=== PATIENT | female | born 1965 | race Two or more races ===

== ENCOUNTER 2017-08-28 12:46 | Inpatient (IN) | payer OTHER ==
[2017-08-28 16:20] VITALS: BMI 20.9
--- NOTE | 2017-08-28 17:45 | HP ---
CIWA Score - CIWA Score Nausea/Vomitin-Mild Nausea/No Vomiting Muscle Tremors: 4-Moderate,w/Arms Extend Anxiety: 4-Mod. Anxious/Guarded Agitation: 4-Moderately Restless Paroxysmal Sweats: 1-Minimal Palms Moist Orientation: 0-Oriented Tacttile Disturbances: 0-None Auditory Disturbances: 0-None Visual Disturbances: 0-None Headache: 0-None Present CIWA-Ar Total Score: 14 Admission ROS S - HPI Chief Complaint: withdrawal sx Allergies/Adverse Reactions: Allergies Allergy/AdvReac Type Severity Reaction Status Date / Time Fish Containing Products Allergy Severe Hives Verified 08/28/17 16:38 No Known Drug Allergies Allergy Verified 08/28/17 16:38 History of Present Illness: 52 years old female with long history of alcohol nicotine dependence has hiv suboxone 8/2 mg bid po since 11/2016 has depression is admitted to detox Exam Limitations: No Limitations - Ebola screening Have you traveled outside of the country in the last 21 days: No (N) Have you had contact with anyone from an Ebola affected area: No Have you been sick,other than usual withdrawal symptoms: No Do you have a fever: No - Review of Systems Constitutional: Loss of Appetite, Changes in sleep, Unintentional Wgt. Loss, Unexplained wgt Loss EENT: reports: No Symptoms Reported Respiratory: reports: No Symptoms reported Cardiac: reports: No Symptoms Reported GI: reports: Nausea, Poor Appetite, Poor Fluid Intake, Abdominal cramping : reports: No Symptoms Reported Musculoskeletal: reports: Back Pain (x "months"), Joint Pain, Muscle Pain Integumentary: reports: No Symptoms Reported Neuro: reports: Tremors Endocrine: reports: No Symptoms Reported Hematology: reports: No Symptoms Reported Psychiatric: reports: Judgement Intact, Orientated x3, Anxious, Depressed Other Systems: Reviewed and Negative Patient History - Patient Medical History Hx Anemia: No Hx Asthma: No Hx Chronic Obstructive Pulmonary Disease (COPD): No Hx Cancer: No Hx Cardiac Disorders: No Hx Congestive Heart Failure: No Hx Hypertension: No Hx Hypercholesterolemia: No Hx Pacemaker: No HX Cerebrovascular Accident: No Hx Seizures: No Hx Dementia: No Hx Diabetes: No Hx Gastrointestinal Disorders: No Hx Liver Disease: No Hx Genitourinary Disorders: No Hx Sexually Transmitted Disorders: No Hx Renal Disease (ESRD): No Hx Thyroid Disease: No Hx Human Immunodeficiency Virus (HIV): Yes (SINCE 2001--; HX OF PCP PNEUMONIA in 2011) Hx Hepatitis C: No Hx Depression: Yes Hx Suicide Attempt: No Hx Bipolar Disorder: No Hx Schizophrenia: No - Patient Surgical History Past Surgical History: Yes Hx Neurologic Surgery: No Hx Cataract Extraction: No Hx Cardiac Surgery: No Hx Lung Surgery: No Hx Breast Surgery: No Hx Breast Biopsy: No Hx Abdominal Surgery: No Hx Appendectomy: No Hx Cholecystectomy: No Hx Genitourinary Surgery: No Hx Orthopedic Surgery: No Other Surgical History: anus polys negative finding Anesthesia Reaction: No - PPD History Previous Implant?: Yes Documented Results: Negative w/proof Implanted On Prior R Admission?: Yes Date: 05/04/16 Results: 0 mm PPD to be Administered?: Yes - Reproductive History Patient is a Female of Child Bearing Age (11 -55 yrs old): Yes Last Menstrual Period: 06/27/17 Patient : No - Smoking Cessation Smoking history: Current every day smoker Have you smoked in the past 12 months: Yes Aproximately how many cigarettes per day: 6 Cigars Per Day: 0 Hx Chewing Tobacco Use: No Initiated information on smoking cessation: Yes 'Breaking Loose' booklet given: 08/28/17 - Substance & Tx. History Hx Alcohol Use: Yes Hx Substance Use: Yes Substance Use Type: Alcohol, Cocaine, Heroin Hx Substance Use Treatment: Yes (2015) - Substances Abused Alcohol Route: Oral Frequency: Daily Amount used: BEER- 1 SIX PACK12 oz Age of first use: 18 Date of Last Use: 08/28/17 Heroin Route: Inhalation Frequency: Daily Amount used: 2 BAGS Age of first use: 22 Date of Last Use: 08/28/17 Crack Route: Smoking Frequency: Daily Amount used: 4 BAGS Age of first use: 35 Date of Last Use: 08/28/17 Family Disease History - Family Disease History Family Disease History: Diabetes: Mother (HTN--ALIVE), Sister, Heart Disease: Father (ALCOHOLISM-- - hx cva), CA: Brother ( colon cancer), Respiratory: Mother, Other: Father, Mother Admission Physical Exam BHS - Vital Signs Vital Signs: Vital Signs - 24 hr 08/28/17 16:18 Temperature 96.9 F L Pulse Rate 85 Respiratory 20 Rate Blood Pressure 112/75 - Physical General Appearance: Yes: Appropriately Dressed, Mild Distress, Thin, Tremorous, Irritable, Sweating, Anxious HEENTM: Yes: Hearing grossly Normal, Normal ENT Inspection, Normocephalic, Normal Voice Respiratory: Yes: Chest Non-Tender, Normal Breath Sounds, No Respiratory Distress, No Accessory Muscle Use Neck: Yes: Supple, Trachea in good position Breast: Yes: Breasts Symetrical Cardiology: Yes: Regular Rhythm, Regular Rate, S1, S2 Abdominal: Yes: Normal Bowel Sounds, Non Tender, Soft Genitourinary: Yes: Within Normal Limits Back: Yes: Normal Inspection Musculoskeletal: Yes: full range of Motion, Gait Steady, Back pain, Muscle Pain Extremities: Yes: Normal Inspection, Normal Range of Motion, Non-Tender, Tremors Neurological: Yes: Alert, Motor Strength 5/5, Normal Response, Depressed Affect Integumentary: Yes: Warm Lymphatic: Yes: Within Normal Limits - Diagnostic (1) Weight loss Current Visit: Yes Status: Acute (2) Chronic back pain Current Visit: Yes Status: Chronic Qualifiers: Back pain location: low back pain Back pain laterality: bilateral Sciatica presence: without sciatica Qualified Code(s): M54.5 - Low back pain; G89.29 - Other chronic pain; G89.29 - Other chronic pain (3) Depression (emotion) Current Visit: Yes Status: Suspected Qualifiers: Depression Type: dysthymia Qualified Code(s): F34.1 - Dysthymic disorder (4) Encounter for monitoring Suboxone maintenance therapy Current Visit: Yes Status: Chronic Comment: since 11/2016 last dose 08/28/16 am x 1 dose (5) Alcohol dependence with uncomplicated withdrawal Current Visit: Yes Status: Acute (6) Nicotine dependence Current Visit: Yes Status: Acute Qualifiers: Nicotine product type: cigarettes Substance use status: in withdrawal Qualified Code(s): F17.213 - Nicotine dependence, cigarettes, with withdrawal (7) HIV (human immunodeficiency virus infection) Current Visit: Yes Status: Chronic Comment: no medication upon admission Cleared for Admission S - Detox or Rehab [facility] Level of Care: Medically Managed Detox Regimen/Protocol: Librium [facility] Breath Alcohol Content Breath Alcohol Content: 0 Urine Pregancy Test - Result Urine Test Results: Negative- NO Line Present Urine Drug Screen - Results Drug Screen Negative: No Urine Drug Screen Results: ALCON-Cocaine, OPI-Opiates
[2017-08-28] MEDS ORDERED: P-EPHED 60MG/TRIPROLIDI 2.5MG TABLET PO PRN (17:48)
[2017-08-28] MEDS ORDERED: ACETAMINOPHEN 325 MG TABLET (FP) PO PRN (17:48)
[2017-08-28] MEDS ORDERED: MENTHOL/PHENOL 1 EACH UD MM PRN (17:48)
[2017-08-28] MEDS ORDERED: NICOTINE POLACRILEX 2 MG GUM BC PRN (17:48)
[2017-08-28] MEDS ORDERED: guaiFENesin/D-METHORPHAN HB 10 ML UNIT-DOSE CUPS PO PRN (17:48)
[2017-08-28] MEDS ORDERED: MAGNESIUM HYDROX 2400MG/30ML ORAL SUSPENSION 30 ML CUP PO PRN (17:48)
[2017-08-28] MEDS ORDERED: chlordiazePOXIDE HCL 25 MG CAPSULE PO PRN (17:48)
[2017-08-28] MEDS ORDERED: MAG HYDROX/AL HYDROX/SIMETH 30 ML UNIT-DOSE CUP PO PRN (17:48)
[2017-08-28] MEDS ORDERED: MAGNESIUM CITRATE 300 ML BOTTLE PO PRN (17:48)
[2017-08-28] MEDS ORDERED: IBUPROFEN 400 MG TABLET (FP) PO PRN (17:48)
[2017-08-28] MEDS ORDERED: LOPERAMIDE HCL 2 MG CAPSULE PO PRN (17:48)
[2017-08-28] MEDS ORDERED: METHADONE HCL 10 MG TABLET (FOR DETOX USE ONLY) ONE (19:13)
[2017-08-28] MEDS: THIAMINE HCL 100 MG TABLET (FP) PO SCH (22:17)
[2017-08-28] MEDS: BUPRENORPHINE/NALOXONE 8 MG/2 MG FILM PACKET SL SCH (22:17)
[2017-08-28] MEDS: chlordiazePOXIDE HCL 25 MG CAPSULE PO SCH (22:18)
[2017-08-28] MEDS: LIDOCAINE PATCH REMOVAL MC SCH (22:53)
[2017-08-28 23:19] LABS: URINE APPEARANCE TURBID; URINE BILIRUBIN NEGATIVE (NEGATIVE); URINE BLOOD NEGATIVE (NEGATIVE); URINE GLUCOSE (UA) NEGATIVE (NEGATIVE); URINE KETONE NEGATIVE (NEGATIVE); URINE LEUK ESTERASE NEGATIVE (NEGATIVE); URINE NITRITE NEGATIVE (NEGATIVE); URINE PROTEIN NEGATIVE (NEGATIVE)
[2017-08-28 23:36] LABS: URINE COLOR YELLOW
[2017-08-29] MEDS: chlordiazePOXIDE HCL 25 MG CAPSULE PO SCH ×4 (05:36→22:30)
[2017-08-29] MEDS: METHOCARBAMOL 500 MG TABLET PO PRN (10:25)
[2017-08-29] MEDS: PRENATAL VITAMINS W/ FOLIC ACID TABLET (FP) PO SCH (10:25)
[2017-08-29] MEDS: NICOTINE 14 MG/24 HOURS TOPICAL PATCH TD SCH (10:25)
[2017-08-29 10:26] LABS: HEMATOCRIT 40.3 % (32.4-45.2); HEMOGLOBIN 13.2 GM/dL (10.7-15.3); MCH 33.2 pg (25.7-33.7); MCHC 32.8 g/dl (32.0-36.0); MEAN CELL VOLUME 101.1 fl (80-96); MEAN PLT VOLUME 8.7 fl (7.5-11.1); PLATELET COUNT 283 K/MM3 (134-434); RBC 3.99 M/mm3 (3.60-5.2); RDW 13.1 % (11.6-15.6); WHITE BLOOD COUNT 6.1 K/mm3 (4.0-10.0)
[2017-08-29] MEDS: ABACAVIR/DOLUTEGRAVIR/LAMIVUDI (TRIUMEQ) TABLET -NF PO SCH (10:26)
[2017-08-29] MEDS: BUPRENORPHINE/NALOXONE 8 MG/2 MG FILM PACKET SL SCH ×2 (10:29→22:29)
[2017-08-29 10:35] LABS: ALBUMIN 3.2 g/dl (3.4-5.0); BLOOD UREA NITROGEN 15 mg/dL (7-18); CHLORIDE 106 mmol/L (98-107); GLUCOSE,RANDOM 90 mg/dL (74-106); POTASSIUM 4.6 mmol/L (3.5-5.1); SGPT/ALT 17 U/L (12-78); SODIUM 142 mmol/L (136-145)
--- NOTE | 2017-08-29 10:41 | EKG ---
Test Reason : Blood Pressure : / mmHG Vent. Rate : 083 BPM Atrial Rate : 083 BPM P-R Int : 138 ms QRS Dur : 084 ms QT Int : 398 ms P-R-T Axes : 058 038 030 degrees QTc Int : 467 ms NORMAL SINUS RHYTHM POSSIBLE LEFT ATRIAL ENLARGEMENT BORDERLINE ECG NO PREVIOUS ECGS AVAILABLE Confirmed by ROSY HARRIS, JUAN MIGUEL ([id number]) on 08/29/2017 10:40:48 AM Referred By: Confirmed By:JUAN MIGUEL GALLEGOS MD
[2017-08-29 10:42] LABS: ALK PHOS 113 U/L (45-117); ANION GAP 5 (8-16); BILIRUBIN,TOTAL 0.2 mg/dL (0.2-1.0); CALCIUM 8.8 mg/dL (8.5-10.1); CO2 31 mmol/L (21-32); CREATININE 0.6 mg/dL (0.55-1.02); SGOT/AST 12 U/L (15-37); TOT PROT 6.5 g/dl (6.4-8.2)
--- NOTE | 2017-08-29 11:20 | PN ---
S CIWA - CIWA Score Nausea/Vomitin Muscle Tremors: 2 Anxiety: 2 Agitation: 2 Paroxysmal Sweats: 3 Orientation: 0-Oriented Tacttile Disturbances: 1-Very Mild Itch/Numbness Auditory Disturbances: 0-None Visual Disturbances: 0-None Headache: 0-None Present CIWA-Ar Total Score: 13 BHS Progress Note (SOAP) Subjective: interrupted sleep, sweats, decreased appetite Objective: 08/29/17 11:17 Vital Signs Temperature 98.1 F 08/29/17 07:15 Pulse Rate 77 08/29/17 07:15 Respiratory Rate 17 08/29/17 07:15 Blood Pressure 105/44 08/29/17 07:15 O2 Sat by Pulse Oximetry (%) 08/29/17 08/29/17 07:00 07:00 WBC 6.1 RBC 3.99 Hgb 13.2 Hct 40.3 MCV 101.1 H MCHC 32.8 RDW 13.1 Plt Count 283 D Sodium 142 Potassium 4.6 Chloride 106 Carbon Dioxide 31 D Anion Gap 5 L BUN 15 Creatinine 0.6 pt aox3 in nad ambulating Assessment: 08/29/17 11:17 withdrawal sx;s Plan: cont. detox increase fluids
[2017-08-29] MEDS: LIDOCAINE 5% TOPICAL PATCH TP SCH (11:26)
--- NOTE | 2017-08-29 13:44 | CONSULT ---
[facility] Psychiatric Consult - Data Date of interview: 08/29/17 Admission source: [facility] Identifying data: Pt. is a 52 year old female, single, mother of two, and currently unemployed. Substance Abuse History: Following information confirmed with Ms. Castaneda: Smoking Cessation. Smoking history: Current every day smoker. Have you smoked in the past 12 months: Yes. Aproximately how many cigarettes per day: 6. Cigars Per Day: 0. Hx Chewing Tobacco Use: No. Initiated information on smoking cessation: Yes. 'Breaking Loose' booklet given: 08/28/17. - Substance & Tx. History. Hx Alcohol Use: Yes. Hx Substance Use: Yes. Substance Use Type : Alcohol, Cocaine, Heroin. Hx Substance Use Treatment: Yes (2015). - Substances Abused. Alcohol. Route: Oral. Frequency: Daily. Amount used: BEER- 1 SIX PACK12 oz. Age of first use: 18. Date of Last Use: 08/28/17. Heroin. Route: Inhalation. Frequency: Daily. Amount used: 2 BAGS. Age of first use: 22. Date of Last Use: 08/28/17. Crack. Route: Smoking. Frequency: Daily. Amount used: 4 BAGS. Age of first use: 35. Date of Last Use : 08/28/17 Medical History: HIV Psychiatric History: Pt. denies h/o psychiatric hospitalization and suicide attempts. Reports last OPC appointment was in June 2017 and was given a prescription of trazodone which patient stated was ineffective. Pt. requesting seroquel for insomnia. Physical/Sexual Abuse/Trauma History: Denies. Mental Status Exam - Mental Status Exam Alert and Oriented to: Time, Place, Person Cognitive Function: Good Patient Appearance: Unkempt Mood: Withdrawn Affect: Normal Range Patient Behavior: Fatigued, Cooperative Speech Pattern: Delayed Voice Loudness: Moderately Soft/Quiet Thought Process: Goal Oriented Thought Disorder: Not Present Hallucinations: Denies Suicidal Ideation: Denies Homicidal Ideation: Denies Insight/Judgement: Poor Sleep: Poorly Appetite: Fair Muscle strength/Tone: Normal Gait/Station: Normal Psychiatric Findings - Problem List ([place] 1, 2,3) (1) Nicotine dependence Current Visit: Yes Status: Acute Qualifiers: Nicotine product type: cigarettes Substance use status: in withdrawal Qualified Code(s): F17.213 - Nicotine dependence, cigarettes, with withdrawal (2) Alcohol dependence with uncomplicated withdrawal Current Visit: Yes Status: Chronic (3) Alcohol dependence Current Visit: Yes Status: Active (4) Opioid dependence Current Visit: Yes Status: Active (5) Cocaine dependence Current Visit: Yes Status: Acute (6) Insomnia Current Visit: Yes Status: Acute - Initial Treatment Plan Initial Treatment Plan: Psychoeducation provided. Detoxification in progress. Seroquel 25mg qhs ordered for insomnia. Benefits and side effects discussed. Verbal consent given. Will continue to monitor.
[2017-08-29] MEDS: QUEtiapine FUMARATE 25 MG TABLET (FP) PO SCH (22:29)
[2017-08-29] MEDS: THIAMINE HCL 100 MG TABLET (FP) PO SCH (22:29)
[2017-08-29] MEDS: LIDOCAINE PATCH REMOVAL MC SCH ×2 (22:46→22:47)
[2017-08-30] MEDS: chlordiazePOXIDE HCL 25 MG CAPSULE PO SCH ×3 (05:37→17:55)
[2017-08-30] MEDS: LIDOCAINE 5% TOPICAL PATCH TP SCH (10:00)
[2017-08-30] MEDS: PRENATAL VITAMINS W/ FOLIC ACID TABLET (FP) PO SCH (10:31)
[2017-08-30] MEDS: NICOTINE 14 MG/24 HOURS TOPICAL PATCH TD SCH (10:31)
[2017-08-30] MEDS: METHOCARBAMOL 500 MG TABLET PO PRN (10:31)
[2017-08-30] MEDS: ABACAVIR/DOLUTEGRAVIR/LAMIVUDI (TRIUMEQ) TABLET -NF PO SCH (10:32)
[2017-08-30] MEDS: BUPRENORPHINE/NALOXONE 8 MG/2 MG FILM PACKET SL SCH ×2 (10:34→22:24)
--- NOTE | 2017-08-30 11:03 | PN ---
S CIWA - CIWA Score Nausea/Vomitin-No Nausea/No Vomiting Muscle Tremors: 4-Moderate,w/Arms Extend Anxiety: 3 Agitation: 3 Paroxysmal Sweats: 3 Orientation: 0-Oriented Tacttile Disturbances: 0-None Auditory Disturbances: 0-None Visual Disturbances: 0-None Headache: 0-None Present CIWA-Ar Total Score: 13 BHS Progress Note (SOAP) Subjective: agitation sweats interrupted sleep body aches shakes Objective: 08/30/17 11:02 Vital Signs Temperature 98.2 F 08/30/17 09:18 Pulse Rate 109 H 08/30/17 09:18 Respiratory Rate 20 08/30/17 09:18 Blood Pressure 117/70 08/30/17 09:18 O2 Sat by Pulse Oximetry (%) Laboratory Tests 08/28/17 08/29/17 08/29/17 19:41 07:00 07:00 WBC 6.1 RBC 3.99 Hgb 13.2 Hct 40.3 MCV 101.1 H MCH 33.2 MCHC 32.8 RDW 13.1 Plt Count 283 D MPV 8.7 Sodium 142 Potassium 4.6 Chloride 106 Carbon Dioxide 31 D Anion Gap 5 L BUN 15 Creatinine 0.6 Creat Clearance w eGFR > 60 Random Glucose 90 Calcium 8.8 Total Bilirubin 0.2 D AST 12 L D ALT 17 D Alkaline Phosphatase 113 Total Protein 6.5 Albumin 3.2 L Urine Color Yellow Urine Appearance Turbid Urine pH 5.0 Ur Specific [place] 1.030 Urine Protein Negative Urine Glucose (UA) Negative Urine Ketones Negative Urine Blood Negative Urine Nitrite Negative Urine Bilirubin Negative Urine Urobilinogen 2.0 H Ur Leukocyte Esterase Negative RPR Titer 08/29/17 07:00 WBC RBC Hgb Hct MCV MCH MCHC RDW Plt Count MPV Sodium Potassium Chloride Carbon Dioxide Anion Gap BUN Creatinine Creat Clearance w eGFR Random Glucose Calcium Total Bilirubin AST ALT Alkaline Phosphatase Total Protein Albumin Urine Color Urine Appearance Urine pH Ur Specific [place] Urine Protein Urine Glucose (UA) Urine Ketones Urine Blood Urine Nitrite Urine Bilirubin Urine Urobilinogen Ur Leukocyte Esterase RPR Titer Nonreactive aaox3 ambulating no acute distress Assessment: 08/30/17 11:03 withdrawal sx Plan: continue detox increase fluids
[2017-08-30] MEDS: THIAMINE HCL 100 MG TABLET (FP) PO SCH (22:24)
[2017-08-30] MEDS: QUEtiapine FUMARATE 25 MG TABLET (FP) PO SCH (22:24)
[2017-08-30] MEDS: chlordiazePOXIDE 5 MG CAPSULE PO SCH (22:26)
[2017-08-30] MEDS: LIDOCAINE PATCH REMOVAL MC SCH (22:26)
[2017-08-31] MEDS: chlordiazePOXIDE 5 MG CAPSULE PO SCH ×3 (05:23→17:24)
[2017-08-31] MEDS: BUPRENORPHINE/NALOXONE 8 MG/2 MG FILM PACKET SL SCH ×2 (10:21→22:37)
[2017-08-31] MEDS: PRENATAL VITAMINS W/ FOLIC ACID TABLET (FP) PO SCH (10:21)
[2017-08-31] MEDS: ABACAVIR/DOLUTEGRAVIR/LAMIVUDI (TRIUMEQ) TABLET -NF PO SCH (10:21)
[2017-08-31] MEDS: LIDOCAINE 5% TOPICAL PATCH TP SCH (10:22)
[2017-08-31] MEDS: NICOTINE 14 MG/24 HOURS TOPICAL PATCH TD SCH (10:22)
--- NOTE | 2017-08-31 10:49 | PN ---
BHS Progress Note (SOAP) Subjective: sweats Objective: 08/31/17 10:48 Vital Signs Temperature 98.2 F 08/31/17 10:46 Pulse Rate 105 H 08/31/17 10:46 Respiratory Rate 18 08/31/17 10:46 Blood Pressure 119/79 08/31/17 10:46 O2 Sat by Pulse Oximetry (%) Laboratory Tests 08/28/17 08/29/17 08/29/17 19:41 07:00 07:00 WBC 6.1 RBC 3.99 Hgb 13.2 Hct 40.3 MCV 101.1 H MCH 33.2 MCHC 32.8 RDW 13.1 Plt Count 283 D MPV 8.7 Sodium 142 Potassium 4.6 Chloride 106 Carbon Dioxide 31 D Anion Gap 5 L BUN 15 Creatinine 0.6 Creat Clearance w eGFR > 60 Random Glucose 90 Calcium 8.8 Total Bilirubin 0.2 D AST 12 L D ALT 17 D Alkaline Phosphatase 113 Total Protein 6.5 Albumin 3.2 L Urine Color Yellow Urine Appearance Turbid Urine pH 5.0 Ur Specific [place] 1.030 Urine Protein Negative Urine Glucose (UA) Negative Urine Ketones Negative Urine Blood Negative Urine Nitrite Negative Urine Bilirubin Negative Urine Urobilinogen 2.0 H Ur Leukocyte Esterase Negative RPR Titer 08/29/17 07:00 WBC RBC Hgb Hct MCV MCH MCHC RDW Plt Count MPV Sodium Potassium Chloride Carbon Dioxide Anion Gap BUN Creatinine Creat Clearance w eGFR Random Glucose Calcium Total Bilirubin AST ALT Alkaline Phosphatase Total Protein Albumin Urine Color Urine Appearance Urine pH Ur Specific [place] Urine Protein Urine Glucose (UA) Urine Ketones Urine Blood Urine Nitrite Urine Bilirubin Urine Urobilinogen Ur Leukocyte Esterase RPR Titer Nonreactive pt aox3 in nad ambulating Assessment: 08/31/17 10:48 withdrawal sx;s Plan: cont. detox increase fluids d/c in am
[2017-08-31] MEDS: THIAMINE HCL 100 MG TABLET (FP) PO SCH (22:37)
[2017-08-31] MEDS: QUEtiapine FUMARATE 25 MG TABLET (FP) PO SCH (22:37)
[2017-08-31] MEDS: chlordiazePOXIDE HCL 10 MG CAPSULE PO SCH (22:37)
[2017-08-31] MEDS: LIDOCAINE PATCH REMOVAL MC SCH (22:39)
[2017-09-01] MEDS: chlordiazePOXIDE HCL 10 MG CAPSULE PO SCH ×2 (05:35→11:34)
[2017-09-01] MEDS: BUPRENORPHINE/NALOXONE 8 MG/2 MG FILM PACKET SL SCH (09:12)
[2017-09-01] MEDS: PRENATAL VITAMINS W/ FOLIC ACID TABLET (FP) PO SCH (09:12)
[2017-09-01 10:18] VITALS: BP 140/89; PULSE 110; TEMP 97.1
--- NOTE | 2017-09-01 10:53 | DS ---
[facility] Detox Discharge Summary Admission Date: 08/28/17 Discharge Date: 09/01/17 - History Present History: Alcohol Dependence, Opioid Dependence Pertinent Past History: Chronic pain Insomnia - Physical Exam Results Vital Signs: Vital Signs Temperature 97.1 F L 09/01/17 10:18 Pulse Rate 110 H 09/01/17 10:18 Respiratory Rate 18 09/01/17 10:18 Blood Pressure 140/89 09/01/17 10:18 O2 Sat by Pulse Oximetry (%) Pertinent Admission Physical Exam Findings: withdrawal symptoms - Treatment Hospital Course: Detox Protocol Followed, Detoxed Safely, Responded well, Discharged Condition Good, Rehab Referral Accepted Patient has Accepted a Rehab Referral to: Patient to continue with self help groups - Medication Discharge Medications: Ambulatory Orders Abacavir/Dolutegravir/Lamivudi [Triumeq Tablet] 1 each PO DAILY 05/02/16 Mirtazapine [Remeron -] 15 mg PO HS 05/02/16 Buprenorphine/Naloxone [Suboxone 8Mg/2Mg Sl Film -] 1 each SL BID 08/28/17 - Diagnosis (1) Opioid dependence on agonist therapy Current Visit: Yes Status: Acute (2) Insomnia Current Visit: Yes Status: Acute (3) Weight loss Current Visit: Yes Status: Acute (4) Alcohol dependence with uncomplicated withdrawal Current Visit: Yes Status: Chronic (5) Chronic back pain Current Visit: Yes Status: Chronic Qualifiers: Back pain location: low back pain Back pain laterality: bilateral Sciatica presence: without sciatica Qualified Code(s): M54.5 - Low back pain; G89.29 - Other chronic pain; G89.29 - Other chronic pain (6) Cocaine dependence Current Visit: Yes Status: Chronic (7) HIV (human immunodeficiency virus infection) Current Visit: Yes Status: Chronic (8) Nicotine dependence Current Visit: Yes Status: Chronic Qualifiers: Nicotine product type: cigarettes Substance use status: uncomplicated Qualified Code(s): F17.210 - Nicotine dependence, cigarettes, uncomplicated - AMA Did Patient Leave Against Medical Advice: No
[2017-09-01] MEDS: ABACAVIR/DOLUTEGRAVIR/LAMIVUDI (TRIUMEQ) TABLET -NF PO SCH (11:33)
[2017-09-01] MEDS: LIDOCAINE 5% TOPICAL PATCH TP SCH (11:33)
[2017-09-01] MEDS: NICOTINE 14 MG/24 HOURS TOPICAL PATCH TD SCH (11:33)
== END 2017-09-01 09:32 | disposition home or self-care (01) | DRG 773 ==
LOC: YASAS 12:46 → Y6N 16:57
PROVIDERS: ADMIT Internal Medicine; ATTEND Internal Medicine
PROC: HZ2ZZZZ Detoxification Services for Substance Abuse Treatment (ICD-10-PCS; principal; 2017-08-28)
DX: F10.230 Alcohol dependence with withdrawal, uncomplicated (principal); F11.20 Opioid dependence, uncomplicated; F14.20 Cocaine dependence, uncomplicated; F17.210 Nicotine dependence, cigarettes, uncomplicated; F34.1 Dysthymic disorder; F19.24 Other psychoactive substance dependence with psychoactive substance-induced mood disorder; F19.282 Other psychoactive substance dependence with psychoactive substance-induced sleep disorder; B20 Human immunodeficiency virus [HIV] disease; G47.00 Insomnia, unspecified; M54.5 Low back pain; G89.29 Other chronic pain; Z91.013 Allergy to seafood; Z87.898 Personal history of other specified conditions
CPT/HCPCS: 36415; 80053; 81003; 85027; 86593; 93005; 93010

== ENCOUNTER 2018-10-28 12:30 | Inpatient (IN) | payer OTHER ==
[2018-10-28 13:55] VITALS: BMI 19.8
--- NOTE | 2018-10-28 15:26 | HP ---
CIWA Score Nausea/Vomitin-No Nausea/No Vomiting Muscle Tremors: 1-None Visible, but [place] Anxiety: 3 Agitation: 2 Paroxysmal Sweats: 2 Orientation: 0-Oriented Tacttile Disturbances: 0-None Auditory Disturbances: 0-None Visual Disturbances: 0-None Headache: 0-None Present CIWA-Ar Total Score: 8 - Admission Criteria OASAS Guidelines: Admission for Medically Managed Detox: Requires at least one of the followin. CIWA greater than 12 2. Seizures within the past 24 hours 3. Delirium tremens within the past 24 hours 4. Hallucinations within the past 24 hours 5. Acute intervention needed for co occurring medical disorder 6. Acute intervention needed for co occurring psychiatric disorder 7. Severe withdrawal that cannot be handled at a lower level of care (continued vomiting, continued diarrhea, abnormal vital signs) requiring intravenous medication and/or fluids 8. Patient presents the following: Acute intervention needed for co-occurring med or psych disorder Admission Criteria Met: Admission criteria met Admission ROS S - [facility] Chief Complaint: " I want to get off everything" Allergies/Adverse Reactions: Allergies Allergy/AdvReac Type Severity Reaction Status Date / Time Fish Containing Products Allergy Severe Hives Verified 10/28/18 14:50 No Known Drug Allergies Allergy Verified 10/28/18 14:50 Seafood Allergy Uncoded 10/28/18 14:50 History of Present Illness: 53 yo female with hx of nicotine, tess, heroin (nasal) and alcohol dependence is here seeking alcohol detox. Last detox [facility] August 2017 reports relapse soon after. Longest period of sobriety six years. Currently on suboxone maintenance for opioid use disorder on 8 mg BID. PMHX: HIV+ reports recently stopped taking her medications. Denies suicidal / homicidal ideation or hx of suicide attempt. Others' Prescriptions Patient Name: Lazara Castaneda Date: 1965 Address: [address] [place] [address] Sex: Female Rx Written Rx Dispensed Drug Quantity Days Supply Prescriber Name 10/21/2018 10/21/2018 buprenorphine-naloxone 8-2 mg sl film 60 30 Jef Galeano 10/07/2018 10/07/2018 buprenorphine-naloxone 8-2 mg sl film 30 15 Jef Galeano 09/23/2018 09/23/2018 suboxone 8 mg-2 mg sl film 28 14 Jef Galeano 09/16/2018 09/16/2018 suboxone 8 mg-2 mg sl film 14 7 GaleanoJef gary 07/15/2018 07/15/2018 suboxone 8 mg-2 mg sl film 60 30 GaleanoJef gary 06/14/2018 06/14/2018 suboxone 8 mg-2 mg sl film 60 30 GaleanoJef gary 05/16/2018 05/16/2018 suboxone 8 mg-2 mg sl film 60 30 GaleanoJef gary 04/17/2018 04/18/2018 suboxone 8 mg-2 mg sl film 60 30 Aroldo Hull MD 03/29/2018 03/29/2018 suboxone 8 mg-2 mg sl film 30 15 Aroldo Hull MD 03/01/2018 03/01/2018 suboxone 8 mg-2 mg sl film 60 30 Aroldo Hull MD 02/01/2018 02/01/2018 suboxone 8 mg-2 mg sl film 60 30 Aroldo Hull MD Exam Limitations: No Limitations - Ebola screening Have you traveled outside of the country in the last 21 days: No Have you had contact with anyone from an Ebola affected area: No Have you been sick,other than usual withdrawal symptoms: No Do you have a fever: No - Review of Systems Constitutional: Chills, Loss of Appetite, Unintentional Wgt. Loss (20 lbs in past three months) EENT: reports: No Symptoms Reported Respiratory: reports: No Symptoms reported Cardiac: reports: No Symptoms Reported GI: reports: Poor Appetite, Poor Fluid Intake : reports: No Symptoms Reported Musculoskeletal: reports: No Symptoms Reported Integumentary: reports: No Symptoms Reported Neuro: reports: No Symptoms reported Endocrine: reports: No Symptoms Reported Hematology: reports: See HPI Psychiatric: reports: Anxious Other Systems: Reviewed and Negative Patient History - Patient Medical History Hx Anemia: No Hx Asthma: No Hx Chronic Obstructive Pulmonary Disease (COPD): No Hx Cancer: No Hx Cardiac Disorders: No Hx Congestive Heart Failure: No Hx Hypertension: No Hx Hypercholesterolemia: No Hx Pacemaker: No HX Cerebrovascular Accident: No Hx Seizures: No Hx Dementia: No Hx Diabetes: No Hx Gastrointestinal Disorders: No Hx Liver Disease: No Hx Genitourinary Disorders: No Hx Sexually Transmitted Disorders: No Hx Renal Disease (ESRD): No Hx Thyroid Disease: No Hx Human Immunodeficiency Virus (HIV): Yes (SINCE 2001--; HX OF PCP PNEUMONIA in 2011) Hx Hepatitis C: No Hx Depression: Yes Hx Suicide Attempt: No Hx Bipolar Disorder: No Hx Schizophrenia: No - Patient Surgical History Past Surgical History: Yes Hx Neurologic Surgery: No Hx Cataract Extraction: No Hx Cardiac Surgery: No Hx Lung Surgery: No Hx Breast Surgery: No Hx Breast Biopsy: No Hx Abdominal Surgery: No Hx Appendectomy: No Hx Cholecystectomy: No Hx Genitourinary Surgery: No Hx Section: No Hx Orthopedic Surgery: No Other Surgical History: anus polys negative finding Anesthesia Reaction: No - PPD History Previous Implant?: Yes Documented Results: Negative w/proof Implanted On Prior [facility] Admission?: No Date: 08/30/17 Results: 0 mm PPD to be Administered?: Yes - Reproductive History Last Menstrual Period: 06/27/17 Patient : No - Smoking Cessation Smoking history: Current every day smoker Have you smoked in the past 12 months: Yes Aproximately how many cigarettes per day: 12 Cigars Per Day: 0 Hx Chewing Tobacco Use: No Initiated information on smoking cessation: Yes 'Breaking Loose' booklet given: 10/28/18 - Substance & Tx. History Hx Alcohol Use: Yes Hx Substance Use: Yes Substance Use Type: Alcohol, Cocaine, Heroin, Marijuana Hx Substance Use Treatment: Yes (Detox [facility] August 2017) - Substances Abused Heroin Route: Inhalation Frequency: Daily Amount used: 1 bundle Age of first use: 20 Date of Last Use: 10/27/18 Alcohol Route: Oral Frequency: Daily Amount used: 1 pint liquor, 3 cans beers ( 12 oz). Age of first use: 30 Date of Last Use: 10/28/18 crack cocaine Route: Smoking Frequency: Daily Amount used: $100 per day Age of first use: 30 Date of Last Use: 10/27/18 Family Disease History - Family Disease History Family Disease History: Diabetes: Mother (HTN--ALIVE), Sister, Heart Disease: Father (ALCOHOLISM-- - hx cva), CA: Brother ( colon cancer), Respiratory: Mother, Other: Father, Mother Admission Physical Exam [facility] - Vital Signs Vital Signs: Vital Signs - 24 hr 10/28/18 13:53 Temperature 97.8 F Pulse Rate 80 Respiratory 20 Rate Blood Pressure 149/77 - Physical General Appearance: Yes: Appropriately Dressed, Thin HEENTM: Yes: EOMI, Hearing grossly Normal, Normal ENT Inspection, Normocephalic , Normal Voice, SUMANTH, Pharynx Normal, Tm's normal Respiratory: Yes: Within Normal Limits Neck: Yes: Within Normal Limits Breast: Yes: Breast Exam Deferred Cardiology: Yes: Regular Rhythm, Regular Rate Abdominal: Yes: Normal Bowel Sounds, Non Tender, Flat, Soft Genitourinary: Yes: Within Normal Limits Back: Yes: Within Normal Limits Musculoskeletal: Yes: full range of Motion, Gait Steady, Pelvis Stable Extremities: Yes: Normal Capillary Refill, Normal Inspection, Normal Range of Motion, Non-Tender Neurological: Yes: spoon maker II-XII NML intact, Fully Oriented, Motor Strength 5/5, Normal Mood/Affect (anxious), Depressed Affect Integumentary: Yes: Normal Color, Warm, Diaphoresis Lymphatic: Yes: Within Normal Limits - Diagnostic (1) Weight loss Current Visit: Yes Status: Acute (2) Alcohol dependence with uncomplicated withdrawal Current Visit: Yes Status: Chronic (3) Cocaine dependence Current Visit: Yes Status: Chronic (4) HIV (human immunodeficiency virus infection) Current Visit: Yes Status: Chronic Comment: no medication upon admission (5) Nicotine dependence Current Visit: Yes Status: Chronic Qualifiers: Nicotine product type: cigarettes Substance use status: uncomplicated Qualified Code(s): F17.210 - Nicotine dependence, cigarettes, uncomplicated (6) Opioid dependence on agonist therapy Current Visit: Yes Status: Chronic Comment: On Suboxone 8 mg BID Cleared for Admission [facility] - Detox or Rehab [facility] Level of Care: Medically Managed Detox Regimen/Protocol: Librium [facility] Breath Alcohol Content Breath Alcohol Content: 0.081 Urine Pregancy Test - Result Urine Test Results: Negative - NO Line Present Urine Drug Screen - Results Drug Screen Negative: No Urine Drug Screen Results: THC-Marijuana, TESS-Cocaine, OPI-Opiates, FEN-Fentanyl , BUP-Suboxone Inpatient Rehab Admission - Rehab Decision to Admit Inpatient rehab admission?: No
[2018-10-28] MEDS ORDERED: MAGNESIUM CITRATE 300 ML BOTTLE PO PRN (15:34)
[2018-10-28] MEDS ORDERED: ACETAMINOPHEN 325 MG TABLET (FP) PO PRN ×2 (15:34)
[2018-10-28] MEDS ORDERED: MAGNESIUM HYDROX 2400MG/30ML ORAL SUSPENSION 30 ML CUP PO PRN (15:34)
[2018-10-28] MEDS ORDERED: NICOTINE POLACRILEX 2 MG GUM BUC PRN (15:34)
[2018-10-28] MEDS ORDERED: BISMUTH SUBSALICYLATE 524 MG/30 ML UD PO PRN (15:34)
[2018-10-28] MEDS ORDERED: MAG HYDROX/AL HYDROX/SIMETH 30 ML UNIT-DOSE CUP PO PRN (15:34)
[2018-10-28] MEDS ORDERED: MELATONIN 5 MG TABLETS PO PRN (15:34)
[2018-10-28] MEDS ORDERED: METHOCARBAMOL 500 MG TABLET PO PRN (15:34)
[2018-10-28] MEDS ORDERED: MENTHOL/PHENOL 1 EACH UD MM PRN (15:34)
[2018-10-28] MEDS ORDERED: IBUPROFEN 400 MG TABLET (FP) PO PRN (15:34)
[2018-10-28] MEDS ORDERED: chlordiazePOXIDE HCL 10 MG CAPSULE PO PRN (15:34)
[2018-10-28] MEDS ORDERED: chlordiazePOXIDE HCL 25 MG CAPSULE PO ONE (17:00)
[2018-10-28] MEDS: BUPRENORPHINE/NALOXONE 8 MG/2 MG FILM PACKET SL SCH (22:23)
[2018-10-28] MEDS: THIAMINE HCL 100 MG TABLET (FP) PO SCH (22:23)
[2018-10-28] MEDS: chlordiazePOXIDE HCL 25 MG CAPSULE PO SCH (22:23)
[2018-10-29 01:41] LABS: URINE APPEARANCE SLCLOUDY; URINE BILIRUBIN NEGATIVE (<2.0 mg/dL); URINE COLOR LTYELLOW; URINE GLUCOSE (UA) NEGATIVE (NEGATIVE); URINE KETONE NEGATIVE (NEGATIVE); URINE LEUK ESTERASE NEGATIVE (NEGATIVE); URINE NITRITE NEGATIVE (NEGATIVE); URINE PROTEIN NEGATIVE (NEGATIVE); URINE UROBILINOGEN NEGATIVE mg/dL (0.2-1.0)
[2018-10-29] MEDS: chlordiazePOXIDE HCL 25 MG CAPSULE PO SCH ×2 (05:26→12:50)
[2018-10-29] MEDS: PRENATAL VITAMINS W/ FOLIC ACID TABLET (FP) PO SCH (10:17)
[2018-10-29] MEDS: NICOTINE 14 MG/24 HOURS TOPICAL PATCH TD SCH (10:17)
[2018-10-29] MEDS: BUPRENORPHINE/NALOXONE 8 MG/2 MG FILM PACKET SL SCH ×2 (10:17→22:30)
--- NOTE | 2018-10-29 10:45 | EKG ---
Test Reason : Blood Pressure : / mmHG Vent. Rate : 083 BPM Atrial Rate : 083 BPM P-R Int : 136 ms QRS Dur : 082 ms QT Int : 398 ms P-R-T Axes : 061 069 057 degrees QTc Int : 467 ms NORMAL SINUS RHYTHM NORMAL ECG WHEN COMPARED WITH ECG OF 28-AUG-2017 19:28, NO SIGNIFICANT CHANGE WAS FOUND Confirmed by Venu Guillermo MD ([id number]) on 10/29/2018 10:44:58 AM Referred By: GIOVANNA WEEKS Confirmed By:Venu Guillermo MD
[2018-10-29 11:30] LABS: HEMATOCRIT 38.3 % (32.4-45.2); HEMOGLOBIN 13.5 GM/dL (10.7-15.3); MCH 34.2 pg (25.7-33.7); MCHC 35.3 g/dl (32.0-36.0); MEAN CELL VOLUME 96.9 fl (80-96); MEAN PLT VOLUME 9.1 fl (7.5-11.1); PLATELET COUNT 261 K/MM3 (134-434); RBC 3.95 M/mm3 (3.60-5.2); RDW 13.4 % (11.6-15.6); WHITE BLOOD COUNT 4.5 K/mm3 (4.0-10.0)
[2018-10-29 11:37] LABS: ALBUMIN 3.2 g/dl (3.4-5.0); ALK PHOS 88 U/L (45-117); ANION GAP 3 MMOL/L (8-16); BILIRUBIN,TOTAL 0.3 mg/dL (0.2-1); BLOOD UREA NITROGEN 10 mg/dL (7-18); CALCIUM 8.8 mg/dL (8.5-10.1); CHLORIDE 107 mmol/L (98-107); CO2 29 mmol/L (21-32); CREATININE 0.5 mg/dL (0.55-1.3); GLUCOSE,RANDOM 93 mg/dL (74-106); POTASSIUM 4.2 mmol/L (3.5-5.1); SGOT/AST 14 U/L (15-37); SGPT/ALT 16 U/L (13-61); SODIUM 139 mmol/L (136-145)
[2018-10-29] MEDS: THIAMINE HCL 100 MG TABLET (FP) PO SCH (22:30)
[2018-10-29] MEDS: chlordiazePOXIDE 5 MG CAPSULE PO SCH (22:30)
[2018-10-30] MEDS: chlordiazePOXIDE 5 MG CAPSULE PO SCH ×2 (06:21→15:51)
[2018-10-30] MEDS: NICOTINE 14 MG/24 HOURS TOPICAL PATCH TD SCH (10:39)
[2018-10-30] MEDS: BUPRENORPHINE/NALOXONE 8 MG/2 MG FILM PACKET SL SCH ×2 (10:39→22:11)
[2018-10-30] MEDS: PRENATAL VITAMINS W/ FOLIC ACID TABLET (FP) PO SCH (10:39)
--- NOTE | 2018-10-30 15:36 | PN ---
S CIWA - CIWA Score Nausea/Vomitin-Mild Nausea/No Vomiting Muscle Tremors: 1-None Visible, but [place] Anxiety: 1-Mildly Anxious Agitation: 1-Slight > Activity Paroxysmal Sweats: No Perspiration Orientation: 0-Oriented Tacttile Disturbances: 0-None Auditory Disturbances: 0-None Visual Disturbances: 0-None Headache: 0-None Present CIWA-Ar Total Score: 4 [facility] Progress Note (SOAP) Subjective: pt states doing well with detox protocol O: Vital Signs - 24 hr 10/29/18 10/29/18 10/30/18 17:32 21:57 00:30 Temperature 97.6 F 97.3 F L Pulse Rate 76 86 Respiratory 16 18 18 Rate Blood Pressure 116/75 143/96 10/30/18 10/30/18 10/30/18 03:30 07:02 10:37 Temperature 97.3 F L 97.8 F Pulse Rate 87 98 H Respiratory 18 18 18 Rate Blood Pressure 118/80 135/84 10/30/18 14:29 Temperature 97.4 F L Pulse Rate 70 Respiratory 18 Rate Blood Pressure 110/68 Laboratory Tests 10/28/18 10/29/18 10/29/18 23:10 07:30 07:30 WBC 4.5 RBC 3.95 Hgb 13.5 Hct 38.3 MCV 96.9 H MCH 34.2 H MCHC 35.3 RDW 13.4 Plt Count 261 MPV 9.1 Sodium 139 Potassium 4.2 Chloride 107 Carbon Dioxide 29 Anion Gap 3 L BUN 10 Creatinine 0.5 L Creat Clearance w eGFR 129.06 Random Glucose 93 Calcium 8.8 Total Bilirubin 0.3 AST 14 L ALT 16 Alkaline Phosphatase 88 Total Protein 7.0 Albumin 3.2 L Urine Color Ltyellow Urine Appearance Slcloudy Urine pH 5.0 Ur Specific [place] 1.010 Urine Protein Negative Urine Glucose (UA) Negative Urine Ketones Negative Urine Blood Negative Urine Nitrite Negative Urine Bilirubin Negative Urine Urobilinogen Negative Ur Leukocyte Esterase Negative RPR Titer 10/29/18 07:30 WBC RBC Hgb Hct MCV MCH MCHC RDW Plt Count MPV Sodium Potassium Chloride Carbon Dioxide Anion Gap BUN Creatinine Creat Clearance w eGFR Random Glucose Calcium Total Bilirubin AST ALT Alkaline Phosphatase Total Protein Albumin Urine Color Urine Appearance Urine pH Ur Specific [place] Urine Protein Urine Glucose (UA) Urine Ketones Urine Blood Urine Nitrite Urine Bilirubin Urine Urobilinogen Ur Leukocyte Esterase RPR Titer Nonreactive a/p: continue alcohol detox protocol, on suboxone considering rehab after detox
[2018-10-30] MEDS ORDERED: chlordiazePOXIDE HCL 10 MG CAPSULE PO PRN (21:00)
[2018-10-30] MEDS: THIAMINE HCL 100 MG TABLET (FP) PO SCH (22:11)
[2018-10-30] MEDS: chlordiazePOXIDE HCL 10 MG CAPSULE PO SCH (22:11)
[2018-10-31] MEDS: chlordiazePOXIDE HCL 10 MG CAPSULE PO SCH (06:00)
[2018-10-31 09:36] VITALS: BP 112/70; PULSE 91; TEMP 97.1
--- NOTE | 2018-10-31 09:47 | DS ---
[facility] Detox Discharge Summary Admission Date: 10/28/18 Discharge Date: 10/31/18 - History Present History: Alcohol Dependence - Physical Exam Results Vital Signs: Vital Signs Temperature 97.1 F L 10/31/18 09:35 Pulse Rate 91 H 10/31/18 09:35 Respiratory Rate 18 10/31/18 09:35 Blood Pressure 112/70 10/31/18 09:35 O2 Sat by Pulse Oximetry (%) Pertinent Admission Physical Exam Findings: alcohol withdrawal sx Laboratory Last Values WBC 4.5 K/mm3 (4.0-10.0) 10/29/18 07:30 RBC 3.95 M/mm3 (3.60-5.2) 10/29/18 07:30 Hgb 13.5 GM/dL (10.7-15.3) 10/29/18 07:30 Hct 38.3 % (32.4-45.2) 10/29/18 07:30 MCV 96.9 fl (80-96) H 10/29/18 07:30 MCH 34.2 pg (25.7-33.7) H 10/29/18 07:30 MCHC 35.3 g/dl (32.0-36.0) 10/29/18 07:30 RDW 13.4 % (11.6-15.6) 10/29/18 07:30 Plt Count 261 K/MM3 (134-434) 10/29/18 07:30 MPV 9.1 fl (7.5-11.1) 10/29/18 07:30 Sodium 139 mmol/L (136-145) 10/29/18 07:30 Potassium 4.2 mmol/L (3.5-5.1) 10/29/18 07:30 Chloride 107 mmol/L (98-107) 10/29/18 07:30 Carbon Dioxide 29 mmol/L (21-32) 10/29/18 07:30 Anion Gap 3 MMOL/L (8-16) L 10/29/18 07:30 BUN 10 mg/dL (7-18) 10/29/18 07:30 Creatinine 0.5 mg/dL (0.55-1.3) L 10/29/18 07:30 Creat Clearance w eGFR 129.06 (>60) 10/29/18 07:30 Random Glucose 93 mg/dL (74-106) 10/29/18 07:30 Calcium 8.8 mg/dL (8.5-10.1) 10/29/18 07:30 Total Bilirubin 0.3 mg/dL (0.2-1) 10/29/18 07:30 AST 14 U/L (15-37) L 10/29/18 07:30 ALT 16 U/L (13-61) 10/29/18 07:30 Alkaline Phosphatase 88 U/L (45-117) 10/29/18 07:30 Total Protein 7.0 g/dl (6.4-8.2) 10/29/18 07:30 Albumin 3.2 g/dl (3.4-5.0) L 10/29/18 07:30 Urine Color Ltyellow 10/28/18 23:10 Urine Appearance Slcloudy 10/28/18 23:10 Urine pH 5.0 (5.0-8.0) 10/28/18 23:10 Ur Specific [place] 1.010 (1.010-1.035) 10/28/18 23:10 Urine Protein Negative (NEGATIVE) 10/28/18 23:10 Urine Glucose (UA) Negative (NEGATIVE) 10/28/18 23:10 Urine Ketones Negative (NEGATIVE) 10/28/18 23:10 Urine Blood Negative (NEGATIVE) 10/28/18 23:10 Urine Nitrite Negative (NEGATIVE) 10/28/18 23:10 Urine Bilirubin Negative (<2.0 mg/dL) 10/28/18 23:10 Urine Urobilinogen Negative mg/dL (0.2-1.0) 10/28/18 23:10 Ur Leukocyte Esterase Negative (NEGATIVE) 10/28/18 23:10 RPR Titer Nonreactive (NONREACTIVE) 10/29/18 07:30 lab noted - Treatment Hospital Course: Detox Protocol Followed, Detoxed Safely, Responded well, Discharged Condition Good, Rehab Referral Accepted Patient has Accepted [facility] - Medication Discharge Medications: Ambulatory Orders Abacavir/Dolutegravir/Lamivudi [Triumeq 600-50-300 mg Tablet] 1 each PO DAILY Buprenorphine/Naloxone [Suboxone 8Mg/2Mg Sl Film -] 1 each SL BID 08/28/17 - Diagnosis (1) Alcohol dependence with uncomplicated withdrawal Status: Acute (2) Encounter for monitoring Suboxone maintenance therapy Status: Chronic (3) HIV (human immunodeficiency virus infection) Status: Chronic Qualifiers: HIV symptom status: asymptomatic Qualified Code(s): Z21 - Asymptomatic human immunodeficiency virus [HIV] infection status (4) Nicotine dependence Status: Acute Qualifiers: Nicotine product type: cigarettes Substance use status: in withdrawal Qualified Code(s): F17.213 - Nicotine dependence, cigarettes, with withdrawal - AMA Did Patient Leave Against Medical Advice: No
[2018-10-31] MEDS: NICOTINE 14 MG/24 HOURS TOPICAL PATCH TD SCH (10:43)
[2018-10-31] MEDS: BUPRENORPHINE/NALOXONE 8 MG/2 MG FILM PACKET SL SCH (10:44)
[2018-10-31] MEDS: PRENATAL VITAMINS W/ FOLIC ACID TABLET (FP) PO SCH (10:44)
== END 2018-10-31 11:08 | disposition home or self-care (01) | DRG 773 ==
LOC: YASAS 12:30 → Y3N 15:42
PROVIDERS: ADMIT Surgery; ATTEND Surgery
PROC: HZ2ZZZZ Detoxification Services for Substance Abuse Treatment (ICD-10-PCS; principal; 2018-10-28)
DX: F10.230 Alcohol dependence with withdrawal, uncomplicated (principal); F14.20 Cocaine dependence, uncomplicated; F11.20 Opioid dependence, uncomplicated; F17.210 Nicotine dependence, cigarettes, uncomplicated; Z21 Asymptomatic human immunodeficiency virus [HIV] infection status; R63.4 Abnormal weight loss; Z68.1 Body mass index [BMI] 19.9 or less, adult; Z51.81 Encounter for therapeutic drug level monitoring; Z91.013 Allergy to seafood
CPT/HCPCS: 36415; 80053; 81003; 85027; 86593; 93005; 93010

== ENCOUNTER 2018-10-31 10:49 | Inpatient (IN) | payer OTHER ==
[2018-10-31 11:26] VITALS: BMI 20.6
[2018-10-31] MEDS ORDERED: guaiFENesin 200 MG/10 ML 10 ML UNIT-DOSE CUPS PO PRN (11:27)
[2018-10-31] MEDS ORDERED: LOPERAMIDE HCL 2 MG CAPSULE PO PRN (11:27)
[2018-10-31] MEDS ORDERED: MENTHOL/PHENOL 1 EACH UD MM PRN (11:27)
[2018-10-31] MEDS ORDERED: MAG HYDROX/AL HYDROX/SIMETH 30 ML UNIT-DOSE CUP PO PRN (11:27)
[2018-10-31] MEDS ORDERED: IBUPROFEN 400 MG TABLET (FP) PO PRN (11:27)
[2018-10-31] MEDS ORDERED: MAGNESIUM CITRATE 300 ML BOTTLE PO PRN (11:27)
[2018-10-31] MEDS ORDERED: P-EPHED 60MG/TRIPROLIDI 2.5MG TABLET PO PRN (11:27)
[2018-10-31] MEDS ORDERED: ACETAMINOPHEN 325 MG TABLET (FP) PO PRN (11:27)
--- NOTE | 2018-10-31 11:27 | HP ---
[facility] Rehab Assess/Revision - Admission History Admitted to Rehab from: [facility] Date of Admission to Rehab: 10/31/18 - Vital signs Vital Signs: Vital Signs Period Temp Pulse Resp BP Sys/Drake Pulse Ox Last 24 Hr 97.3 F-97.3 F 99-99 18-18 128-128/83-83 - Findings Detox History & Physical reviewed: Yes Concur with findings: Yes Comments/Additional Findings: transferred from [facility] to rehab admission as per protocol Inpatient Rehab Admission - Rehab Decision to Admit Inpatient rehab admission?: Yes - Initial Determination Are CD services needed?: Yes Free of communicable disease: Yes Not in need of hospitalization: Yes - Rehab Admission Criteria Previous failed treatment: Yes Poor recovery environment: Yes Comorbidities: Yes Lacks judgement: No Patient is meeting Inpatient Rehab admission criteria:: Yes
[2018-10-31] MEDS ORDERED: MELATONIN 5 MG TABLETS PO PRN (22:00)
[2018-10-31] MEDS: THIAMINE HCL 100 MG TABLET (FP) PO SCH (22:14)
[2018-10-31] MEDS: BUPRENORPHINE/NALOXONE 8 MG/2 MG FILM PACKET SL SCH (22:14)
[2018-11-01] MEDS: NICOTINE 14 MG/24 HOURS TOPICAL PATCH TD PRN (10:20)
[2018-11-01] MEDS: BUPRENORPHINE/NALOXONE 8 MG/2 MG FILM PACKET SL SCH ×2 (10:21→21:24)
[2018-11-01] MEDS: PRENATAL VITAMINS W/ FOLIC ACID TABLET (FP) PO SCH (10:21)
--- NOTE | 2018-11-01 13:24 | PN ---
[facility] Progress Note Note: PATIENT SEEN FOR C/O INSOMNIA. PATIENT DENIES NIGHTMARES, ANXIETY AND DEPRESSION. PATIENT STATES SHE HAS HAD INSOMNIA FOR YEARS BUT IT BECOMES WORSE WHEN SOBER. A/P INSOMNIA WILL ORDER MELATONIN 10MG HS CONTINUE TO MONITOR CLINICALLY Vital Signs Temperature 97.4 F L 11/01/18 07:17 Pulse Rate 92 H 11/01/18 07:17 Respiratory Rate 11/01/18 07:17 Blood Pressure 102/69 11/01/18 07:17 O2 Sat by Pulse Oximetry (%)
[2018-11-01] MEDS: THIAMINE HCL 100 MG TABLET (FP) PO SCH (21:24)
[2018-11-01] MEDS: MELATONIN 5 MG TABLETS PO PRN (21:25)
[2018-11-02] MEDS: NICOTINE 14 MG/24 HOURS TOPICAL PATCH TD PRN (09:58)
[2018-11-02] MEDS: PRENATAL VITAMINS W/ FOLIC ACID TABLET (FP) PO SCH (09:58)
[2018-11-02] MEDS: BUPRENORPHINE/NALOXONE 8 MG/2 MG FILM PACKET SL SCH ×2 (09:59→21:08)
[2018-11-02] MEDS: MELATONIN 5 MG TABLETS PO PRN (21:08)
[2018-11-02] MEDS: THIAMINE HCL 100 MG TABLET (FP) PO SCH (21:08)
[2018-11-03] MEDS: PRENATAL VITAMINS W/ FOLIC ACID TABLET (FP) PO SCH (09:01)
[2018-11-03] MEDS: BUPRENORPHINE/NALOXONE 8 MG/2 MG FILM PACKET SL SCH ×2 (09:01→21:12)
[2018-11-03] MEDS: NICOTINE 14 MG/24 HOURS TOPICAL PATCH TD PRN (10:05)
[2018-11-03] MEDS: THIAMINE HCL 100 MG TABLET (FP) PO SCH (21:11)
[2018-11-03] MEDS: MELATONIN 5 MG TABLETS PO PRN (21:12)
[2018-11-04] MEDS: PRENATAL VITAMINS W/ FOLIC ACID TABLET (FP) PO SCH (10:01)
[2018-11-04] MEDS: BUPRENORPHINE/NALOXONE 8 MG/2 MG FILM PACKET SL SCH ×2 (10:01→17:44)
[2018-11-04] MEDS: THIAMINE HCL 100 MG TABLET (FP) PO SCH (21:34)
[2018-11-04] MEDS: MELATONIN 5 MG TABLETS PO PRN (21:34)
[2018-11-05] MEDS: BUPRENORPHINE/NALOXONE 8 MG/2 MG FILM PACKET SL SCH ×2 (06:55→17:53)
[2018-11-05] MEDS: NICOTINE 14 MG/24 HOURS TOPICAL PATCH TD SCH (10:29)
[2018-11-05] MEDS: PRENATAL VITAMINS W/ FOLIC ACID TABLET (FP) PO SCH (10:29)
[2018-11-05] MEDS: MAGNESIUM HYDROX 2400MG/30ML ORAL SUSPENSION 30 ML CUP PO PRN (15:58)
[2018-11-05] MEDS: THIAMINE HCL 100 MG TABLET (FP) PO SCH (21:29)
[2018-11-05] MEDS: MELATONIN 5 MG TABLETS PO PRN (21:29)
[2018-11-06] MEDS: BUPRENORPHINE/NALOXONE 8 MG/2 MG FILM PACKET SL SCH ×2 (06:40→19:00)
[2018-11-06] MEDS: NICOTINE POLACRILEX 2 MG GUM BC PRN (10:00)
[2018-11-06] MEDS: NICOTINE 14 MG/24 HOURS TOPICAL PATCH TD SCH (10:00)
[2018-11-06] MEDS: PRENATAL VITAMINS W/ FOLIC ACID TABLET (FP) PO SCH (10:00)
[2018-11-06] MEDS: THIAMINE HCL 100 MG TABLET (FP) PO SCH (21:44)
[2018-11-06] MEDS: MELATONIN 5 MG TABLETS PO PRN (21:44)
[2018-11-06] MEDS: MAGNESIUM HYDROX 2400MG/30ML ORAL SUSPENSION 30 ML CUP PO PRN (21:45)
[2018-11-07] MEDS: BUPRENORPHINE/NALOXONE 8 MG/2 MG FILM PACKET SL SCH ×2 (06:47→17:44)
[2018-11-07] MEDS: PRENATAL VITAMINS W/ FOLIC ACID TABLET (FP) PO SCH (10:04)
[2018-11-07] MEDS: NICOTINE 14 MG/24 HOURS TOPICAL PATCH TD SCH (10:04)
[2018-11-07] MEDS: THIAMINE HCL 100 MG TABLET (FP) PO SCH (21:18)
[2018-11-07] MEDS: MELATONIN 5 MG TABLETS PO PRN (21:18)
[2018-11-08] MEDS: BUPRENORPHINE/NALOXONE 8 MG/2 MG FILM PACKET SL SCH ×2 (06:25→19:09)
[2018-11-08] MEDS: NICOTINE POLACRILEX 2 MG GUM BC PRN (10:07)
[2018-11-08] MEDS: NICOTINE 14 MG/24 HOURS TOPICAL PATCH TD SCH (10:07)
[2018-11-08] MEDS: PRENATAL VITAMINS W/ FOLIC ACID TABLET (FP) PO SCH (10:07)
[2018-11-08] MEDS: MELATONIN 5 MG TABLETS PO PRN (21:09)
[2018-11-08] MEDS: THIAMINE HCL 100 MG TABLET (FP) PO SCH (21:09)
[2018-11-09] MEDS: BUPRENORPHINE/NALOXONE 8 MG/2 MG FILM PACKET SL SCH ×2 (06:39→17:53)
[2018-11-09] MEDS: PRENATAL VITAMINS W/ FOLIC ACID TABLET (FP) PO SCH (10:20)
[2018-11-09] MEDS: NICOTINE 14 MG/24 HOURS TOPICAL PATCH TD SCH (10:20)
[2018-11-09] MEDS: MELATONIN 5 MG TABLETS PO PRN (21:15)
[2018-11-09] MEDS: THIAMINE HCL 100 MG TABLET (FP) PO SCH (21:15)
[2018-11-10] MEDS: BUPRENORPHINE/NALOXONE 8 MG/2 MG FILM PACKET SL SCH ×2 (06:37→17:36)
[2018-11-10] MEDS: NICOTINE 14 MG/24 HOURS TOPICAL PATCH TD SCH (10:15)
[2018-11-10] MEDS: PRENATAL VITAMINS W/ FOLIC ACID TABLET (FP) PO SCH (10:15)
[2018-11-10] MEDS: MELATONIN 5 MG TABLETS PO PRN (21:16)
[2018-11-10] MEDS: THIAMINE HCL 100 MG TABLET (FP) PO SCH (21:17)
[2018-11-11] MEDS: BUPRENORPHINE/NALOXONE 8 MG/2 MG FILM PACKET SL SCH ×2 (06:28→17:46)
[2018-11-11] MEDS: NICOTINE 14 MG/24 HOURS TOPICAL PATCH TD SCH (10:55)
[2018-11-11] MEDS: PRENATAL VITAMINS W/ FOLIC ACID TABLET (FP) PO SCH (10:55)
[2018-11-11] MEDS: MELATONIN 5 MG TABLETS PO PRN (21:14)
[2018-11-11] MEDS: THIAMINE HCL 100 MG TABLET (FP) PO SCH (21:15)
[2018-11-12] MEDS: BUPRENORPHINE/NALOXONE 8 MG/2 MG FILM PACKET SL SCH (06:40)
[2018-11-12 06:59] VITALS: BP 110/67; PULSE 74; TEMP 97.4
[2018-11-12] MEDS: PRENATAL VITAMINS W/ FOLIC ACID TABLET (FP) PO SCH (09:03)
[2018-11-12] MEDS: NICOTINE 14 MG/24 HOURS TOPICAL PATCH TD SCH (09:03)
--- NOTE | 2018-11-12 09:29 | PN ---
[facility] Progress Note Note: PT COMPLETED REHAB AND DISCHARGED TODAY. PT MET WITH HER COUNSELOR,AND HAS BEEN REFERRED FOR CD AFTERCARE TO [facility] ON [address] [place], [place] AND FOR PSYCH/MEDICAL TO [facility] ON [address], [place] FOR MEDICAL MANAGEMENT. PT REPORTS SHE NINA BE GOING BACK TO HER SUBOXONE PROVIDER, DR WELCH. [facility] RX FOR SUBOXONE HAS BEEN ELECTRONICALLY SENT TO [facility] FOR PT TO LUMBER BUYER AFTER DISCHARGE TODAY. PT IS ALERT O X 3. DENIES S/H/ I. Home Medications Medication Instructions Recorded Abacavir/Dolutegravir/Lamivudi 1 each PO DAILY 05/02/16 [Triumeq 600-50-300 mg Tablet] Buprenorphine/Naloxone [Suboxone 1 each SL BID 08/28/17 8Mg/2Mg Sl Film -] Buprenorphine/Naloxone [Suboxone 1 each SL BID #14 packet MDD 2 11/12/18 8Mg/2Mg Sl Film -] Vital Signs - 24 hr 11/12/18 11/12/18 11/12/18 00:30 03:30 06:58 Temperature 97.4 F L Pulse Rate 74 Respiratory 16 16 16 Rate Blood Pressure 110/67 NAD MEDICALLY STABLE PLAN:FOLLOW UP WITH CD AFTERCARE RECOMMENDED ON 11/14/18 AT 11:00 A.M FOLLOW UP WITH PSYCH/MEDICAL/ SUBOXONE APPOINTMENT WITHIN 1 WEEK AFTER DISCHARGE. All Active Problems Nicotine dependence (Chronic) Weight loss (Acute) Chronic back pain (Chronic) Cocaine dependence (Chronic) Encounter for monitoring Suboxone maintenance therapy (Chronic) HIV (human immunodeficiency virus infection) (Chronic)
== END 2018-11-12 09:22 | disposition home or self-care (01) | DRG 772 ==
LOC: YASAS 10:49 → Y3E 10:50
PROVIDERS: ADMIT Neuromusculoskeletal Medicine & OMM; ATTEND Neuromusculoskeletal Medicine & OMM
PROC: HZ42ZZZ Group Counseling for Substance Abuse Treatment, Cognitive-Behavioral (ICD-10-PCS; principal; 2018-10-31)
DX: F14.20 Cocaine dependence, uncomplicated (principal); F17.210 Nicotine dependence, cigarettes, uncomplicated; Z21 Asymptomatic human immunodeficiency virus [HIV] infection status; G47.00 Insomnia, unspecified; M54.9 Dorsalgia, unspecified; G89.29 Other chronic pain; R63.4 Abnormal weight loss; Z68.20 Body mass index [BMI] 20.0-20.9, adult; Z51.81 Encounter for therapeutic drug level monitoring

== ENCOUNTER 2019-09-17 11:33 | Inpatient (IN) | payer OTHER ==
[2019-09-17 13:59] VITALS: BMI 20.2
--- NOTE | 2019-09-17 14:16 | HP ---
COWS - Scale Resting Pulse: 1= [place] 81-100 Sweatin=Flushed/Facial Moisture Restless Observation: 0= Sits Still Pupil Size: 0= Normal to Room Light Bone or Joint Aches: 2= Severe Diffuse Aches Runny Nose/ Eye Tearin= Runny Nose/Eyes GI Upset > 30mins: 0= None Tremor Observation: 0= None Yawning Observation: 0= None Anxiety or Irritability: 0= None Goose Flesh Skin: 0=Smooth Skin COWS Score: 7 CIWA Score Muscle Tremors: 1-None Visible, but [place] Anxiety: 1-Mildly Anxious Agitation: 1-Slight > Activity Paroxysmal Sweats: 1-Minimal Palms Moist Orientation: 1-Uncertain about Date Tacttile Disturbances: 0-None Auditory Disturbances: 0-None Visual Disturbances: 0-None (last drink 2 hours ago) - Admission Criteria OASAS Guidelines: Admission for Medically Managed Detox: Requires at least one of the followin. CIWA greater than 12 2. Seizures within the past 24 hours 3. Delirium tremens within the past 24 hours 4. Hallucinations within the past 24 hours 5. Acute intervention needed for co occurring medical disorder 6. Acute intervention needed for co occurring psychiatric disorder 7. Severe withdrawal that cannot be handled at a lower level of care (continued vomiting, continued diarrhea, abnormal vital signs) requiring intravenous medication and/or fluids 8. Admitting History and Physical - Admission Chief Complaint: Ms. Castaneda is a 54 yo woman who presents for admission to detox with a history of heroin and alcohol use. She takes Suboxone for opioid use disorder. History of Present Illness: Ms. Castaneda is a 54 yo woman who presents for admission to detox with a history of heroin and alcohol use. She takes Suboxone for opioid use disorder. She last completed detox and rehab in October of 2018. She was doing well on Suboxone 8/, bid then relapsed 2 mos ago to heroin. PMH: HIV, med noncompliant with Triumeq (? spelling) PSH: none Psych: none Substance use history: Heroin, first use age 20 y, last use early this am, quantity: 6 bags per day. No OD. Sniffs. Never injected. Alcohol: first use age 18 y, last drink this am, quantity: one pint daily of Myra, and one 6 pack of 12 oz beer. No hx of black out or seizure. If abstinent: sweats, shakes Cocaine: last use, crack yesterday, first use: age 18y, quantity: $100. per day Marijuana: one nickel bag once per week, one joint yesterday, first use age 15y Denies: Benzodiazepines - Past Medical History ...LMP: 06/27/17 ...: No - Smoking History Smoking history: Current every day smoker Have you smoked in the past 12 months: Yes Aproximately how many cigarettes per day: 6 - Alcohol/Substance Use Hx Alcohol Use: Yes Admission [facility] Allergies/Adverse Reactions: Allergies Allergy/AdvReac Type Severity Reaction Status Date / Time Fish Containing Products Allergy Severe Hives Verified 09/17/19 13:59 No Known Drug Allergies Allergy Verified 09/17/19 13:59 shellfish derived Allergy Verified 09/17/19 13:59 Seafood Allergy Uncoded 09/17/19 13:59 - Ebola screening Have you traveled outside of the country in the last 21 days: No Have you had contact with anyone from an Ebola affected area: No Have you been sick,other than usual withdrawal symptoms: No Do you have a fever: No - Review of Systems Musculoskeletal: reports: Back Pain, Joint Pain Integumentary: reports: No Symptoms Reported Neuro: reports: No Symptoms reported Endocrine: reports: No Symptoms Reported Hematology: reports: No Symptoms Reported Psychiatric: reports: No Sypmtoms Reported Patient History - Patient Medical History Hx Anemia: No Hx Asthma: No Hx Chronic Obstructive Pulmonary Disease (COPD): No Hx Cancer: No Hx Cardiac Disorders: No Hx Congestive Heart Failure: No Hx Hypertension: No Hx Hypercholesterolemia: No Hx Pacemaker: No HX Cerebrovascular Accident: No Hx Seizures: No Hx Dementia: No Hx Diabetes: No Hx Gastrointestinal Disorders: No Hx Liver Disease: No Hx Genitourinary Disorders: No Hx Sexually Transmitted Disorders: No Hx Renal Disease (ESRD): No Hx Thyroid Disease: No Hx Human Immunodeficiency Virus (HIV): Yes (SINCE 2001--; HX OF PCP PNEUMONIA in 2011) Hx Hepatitis C: No Hx Depression: Yes Hx Suicide Attempt: No Hx Bipolar Disorder: No Hx Schizophrenia: No - Patient Surgical History Past Surgical History: Yes Hx Neurologic Surgery: No Hx Cataract Extraction: No Hx Cardiac Surgery: No Hx Lung Surgery: No Hx Breast Surgery: No Hx Breast Biopsy: No Hx Abdominal Surgery: No Hx Appendectomy: No Hx Cholecystectomy: No Hx Genitourinary Surgery: No Hx Section: No Hx Orthopedic Surgery: No Other Surgical History: anus polys negative finding Anesthesia Reaction: No - PPD History Previous Implant?: Yes Documented Results: Negative w/proof Implanted On Prior [facility] Admission?: Yes Date: 10/30/18 Results: 0 mm - Reproductive History Last Menstrual Period: 06/27/17 Patient : No - Smoking Cessation Smoking history: Current every day smoker Have you smoked in the past 12 months: Yes Aproximately how many cigarettes per day: 6 Cigars Per Day: 0 Hx Chewing Tobacco Use: No Initiated information on smoking cessation: Yes 'Breaking Loose' booklet given: 09/17/19 - Substances abused Heroin Substance route: Inhalation Frequency: Daily Amount used: 5 bags Age of first use: 18 Date of last use: 09/17/19 Alcohol Substance route: Oral Frequency: Daily Amount used: 1/2 pint cognac/ 6pk beer Age of first use: 20 Date of last use: 09/17/19 Crack Substance route: Smoking Frequency: Daily Amount used: $100 Age of first use: 20 Date of last use: 09/16/19 Marijuana/Hashish Substance route: Smoking Frequency: Daily Amount used: $5 Age of first use: 15 Date of last use: 09/17/[address] [facility] - Vital Signs Vital Signs: Vital Signs - 24 hr 09/17/19 13:54 Temperature 98.2 F Pulse Rate 100 H Respiratory 16 Rate Blood Pressure 118/76 - Physical General Appearance: Yes: Within Normal Limits, Nourished, Appropriately Dressed HEENTM: Yes: Hearing grossly Normal, Normocephalic, Normal Voice, [place] Respiratory: Yes: Lungs Clear, Normal Breath Sounds Neck: Yes: Within Normal Limits, No masses,lesions,Nodules Breast: Yes: Breast Exam Deferred Cardiology: Yes: S1, S2, Tachycardia Abdominal: Yes: Non Tender, Flat, Decreased BS Back: Yes: Other (mild tenderness to percussion upper lumbar spine, pt attributes to withdrawal) Extremities: Yes: Within Normal Limits Neurological: Yes: Fully Oriented, Alert, Normal Mood/Affect, Normal Response Integumentary: Yes: Within Normal Limits Cleared for Admission S - Detox or Rehab S Level of Care: Medically Managed Breathalyzer - Breathalyzer Breathalyzer: 0.169 Urine Drug Screen - Test Device Lot number: [id number] Expiration date: 07/12/21 - Control Is test valid?: Yes - Results Drug screen NEGATIVE: No Urine drug screen results: THC-Marijuana, ALCON-Cocaine, FEN-Fentanyl, MOP-Opiates Inpatient Rehab Admission - Rehab Decision to Admit Inpatient rehab admission?: No
[2019-09-17] MEDS ORDERED: MENTHOL/PHENOL 1 EACH UD MM PRN (14:22)
[2019-09-17] MEDS ORDERED: chlordiazePOXIDE HCL 25 MG CAPSULE PO PRN (14:22)
[2019-09-17] MEDS ORDERED: MAGNESIUM CITRATE 300 ML BOTTLE PO PRN (14:22)
[2019-09-17] MEDS ORDERED: BISMUTH SUBSALICYLATE 262 MG/15 ML BTL PO PRN (14:22)
[2019-09-17] MEDS ORDERED: NICOTINE POLACRILEX 2 MG GUM BUC PRN (14:22)
[2019-09-17] MEDS ORDERED: MAGNESIUM HYDROX 2400MG/30ML ORAL SUSPENSION 30 ML CUP PO PRN (14:22)
[2019-09-17] MEDS ORDERED: hydrOXYzine PAMOATE 25 MG CAPSULE (FP) PO PRN (14:22)
[2019-09-17] MEDS ORDERED: IBUPROFEN 400 MG TABLET (FP) PO PRN (14:22)
[2019-09-17] MEDS ORDERED: MAG HYDROX/AL HYDROX/SIMETH 30 ML UNIT-DOSE CUP PO PRN (14:22)
[2019-09-17] MEDS ORDERED: cloNIDine HCL 0.1 MG TABLET PO PRN (14:22)
[2019-09-17] MEDS ORDERED: ACETAMINOPHEN 325 MG TABLET (FP) PO PRN ×2 (14:22)
[2019-09-17] MEDS ORDERED: METHADONE HCL 10 MG TABLET (FOR DETOX USE ONLY) PO ONE (15:10)
[2019-09-17] MEDS: ABACAVIR/DOLUTEGRAVIR/LAMIVUDI (TRIUMEQ) TABLET -NF PO SCH (15:51)
[2019-09-17] MEDS: NICOTINE 14 MG/24 HOURS TOPICAL PATCH TD SCH (15:51)
[2019-09-17 18:03] LABS: HEMATOCRIT 37.4 % (32.4-45.2); HEMOGLOBIN 13.3 GM/dL (10.7-15.3); MCH 35.3 pg (25.7-33.7); MCHC 35.5 g/dl (32.0-36.0); MEAN CELL VOLUME 99.6 fl (80-96); MEAN PLT VOLUME 8.9 fl (7.5-11.1); PLATELET COUNT 272 K/MM3 (134-434); RBC 3.76 M/mm3 (3.60-5.2); RDW 13.1 % (11.6-15.6); WHITE BLOOD COUNT 4.5 K/mm3 (4.0-10.0)
[2019-09-17] MEDS: chlordiazePOXIDE HCL 25 MG CAPSULE PO SCH ×2 (18:06→22:17)
[2019-09-17 18:14] LABS: ALBUMIN 3.2 g/dl (3.4-5.0); BILIRUBIN,TOTAL 0.2 mg/dL (0.2-1); BLOOD UREA NITROGEN 6.9 mg/dL (7-18); CREATININE 0.5 mg/dL (0.55-1.3); TOT PROT 7.6 g/dl (6.4-8.2)
[2019-09-17] MEDS: MELATONIN 5 MG TABLETS PO PRN (22:17)
[2019-09-17] MEDS: THIAMINE HCL 100 MG TABLET (FP) PO SCH (22:17)
[2019-09-18] MEDS: chlordiazePOXIDE HCL 25 MG CAPSULE PO SCH ×4 (06:01→22:25)
[2019-09-18] MEDS ORDERED: METHADONE HCL 5 MG TABLET (FOR DETOX USE ONLY) PO ONE (10:00)
[2019-09-18] MEDS: PRENATAL VITAMINS W/ FOLIC ACID TABLET (FP) PO SCH (10:33)
[2019-09-18] MEDS: NICOTINE 14 MG/24 HOURS TOPICAL PATCH TD SCH (10:33)
--- NOTE | 2019-09-18 11:29 | PN ---
[facility] CIWA - CIWA Score Nausea/Vomitin-No Nausea/No Vomiting Muscle Tremors: 2 Anxiety: 2 Agitation: 3 Paroxysmal Sweats: 2 Orientation: 0-Oriented Tacttile Disturbances: 0-None Auditory Disturbances: 0-None Visual Disturbances: 0-None Headache: 0-None Present CIWA-Ar Total Score: 9 BHS COWS - Scale Resting Pulse: 1= [place] 81-100 Sweatin= Chills/Flushing Restless Observation: 0= Sits Still Pupil Size: 0= Normal to Room Light Bone or Joint Aches: 1= Mild Discomfort Runny Nose/ Eye Tearin= None GI Upset > 30mins: 2= Nausea/Diarrhea Tremor Observation of Outstretched Hands: 1= Tremor [place], Not Seen Yawning Observation: 1= 1-2x During Session Anxiety or Irritability: 2=Irritable/Anxious Goose Flesh Skin: 0=Smooth Skin COWS Score: 9 BHS Progress Note (SOAP) Subjective: sweats shakes body aches irritable interrupted sleep poor appetite Objective: 09/18/19 11:28 Vital Signs Temperature 97.9 F 09/18/19 09:10 Pulse Rate 96 H 09/18/19 09:10 Respiratory Rate 16 09/18/19 09:10 Blood Pressure 118/80 09/18/19 09:10 O2 Sat by Pulse Oximetry (%) Laboratory Tests 09/17/19 09/17/19 09/17/19 13:38 14:40 14:40 WBC 4.5 RBC 3.76 Hgb 13.3 Hct 37.4 MCV 99.6 H MCH 35.3 H MCHC 35.5 RDW 13.1 Plt Count 272 MPV 8.9 Sodium 138 Potassium 4.0 Chloride 105 Carbon Dioxide 29 Anion Gap 4 L BUN 6.9 L Creatinine 0.5 L Est GFR (CKD-EPI)AfAm 127.17 Est GFR (CKD-EPI)NonAf 109.72 Random Glucose 91 Calcium 9.0 Total Bilirubin 0.2 AST 15 ALT 14 Alkaline Phosphatase 99 Total Protein 7.6 Albumin 3.2 L POC Urine HCG, Qual Negative 09/17/19 15:45 WBC RBC Hgb Hct MCV MCH MCHC RDW Plt Count MPV Sodium Potassium Chloride Carbon Dioxide Anion Gap BUN Creatinine Est GFR (CKD-EPI)AfAm Est GFR (CKD-EPI)NonAf Random Glucose Calcium Total Bilirubin AST ALT Alkaline Phosphatase Total Protein Albumin POC Urine HCG, Qual Negative aaox3 lying in bed no acute distress Assessment: 09/18/19 11:28 withdrawals Plan: continue detox ensure plus BID for lunch and dinner increase fluids
--- NOTE | 2019-09-18 13:19 | CONSULT ---
[facility] Psychiatric Consult - Data Date of interview: 09/18/19 Admission source: Self-referred Identifying data: Ms Gonsalez is a 54 years old female, mother of 2 childre, unemployed receiving HASA, domiciled seeking detox treatment for alcohol, opioid, cocaine and cannabis Substance Abuse History: Reports history of alcohol, heroin, crack cocaine and marijuana use. Refer to addiction counselor's summary for further information Medical History: Significant for HIV+ diagnosed 2002. Patient is on Suboxone 8 m /2 mg BID from [employer] Smkes 6 cigarettes daily Psychiatric History: Denies history of previous psychiatric treatment. However suffering from insomnia and receiving Seroquel in the past for it Physical/Sexual Abuse/Trauma History: Denies history of abuse as a child or DV relationship as an adult Mental Status Exam - Mental Status Exam Alert and Oriented to: Time, Place, Person Cognitive Function: Fair Patient Appearance: Well Groomed Mood: Depressed Affect: Appropriate Patient Behavior: Cooperative Speech Pattern: Clear Voice Loudness: Normal Thought Process: Intact, Goal Oriented Thought Disorder: Not Present Hallucinations: Denies Suicidal Ideation: Denies Homicidal Ideation: Denies Insight/Judgement: Poor Sleep: Poorly Appetite: Poor Muscle strength/Tone: Normal Gait/Station: Normal Psychiatric Findings - Problem List ([place] 1, 2,3) (1) Substance induced mood disorder Current Visit: Yes Status: Acute (2) Substance-induced sleep disorder Current Visit: Yes Status: Acute (3) Alcohol dependence with uncomplicated withdrawal Current Visit: No Status: Acute (4) Cocaine dependence Current Visit: No Status: Acute (5) Cannabis dependence Current Visit: Yes Status: Acute (6) Opioid dependence on agonist therapy Current Visit: No Status: Chronic Comment: On Suboxone 8 mg BID (7) Nicotine dependence Current Visit: No Status: Chronic Qualifiers: (8) Chronic back pain Current Visit: No Status: Chronic Qualifiers: Back pain location: low back pain Back pain laterality: bilateral Sciatica presence: without sciatica Qualified Code(s): M54.5 - Low back pain; G89.29 - Other chronic pain; G89.29 - Other chronic pain (9) HIV (human immunodeficiency virus infection) Current Visit: No Status: Chronic Qualifiers: Comment: no medication upon admission - Initial Treatment Plan Initial Treatment Plan: 1) Start Belsomra 10 mg po HS prn for insomnia. 2) Continue inpatient detoxification
[2019-09-18] MEDS: ABACAVIR/DOLUTEGRAVIR/LAMIVUDI (TRIUMEQ) TABLET -NF PO SCH (14:24)
[2019-09-18] MEDS ORDERED: SUVOREXANT 10 MG TABLET PO PRN (22:00)
[2019-09-18] MEDS: THIAMINE HCL 100 MG TABLET (FP) PO SCH (22:25)
[2019-09-18] MEDS: MELATONIN 5 MG TABLETS PO PRN (22:25)
[2019-09-19] MEDS: chlordiazePOXIDE HCL 25 MG CAPSULE PO SCH ×4 (06:34→22:32)
[2019-09-19] MEDS ORDERED: METHADONE HCL 10 MG TABLET (FOR DETOX USE ONLY) PO ONE (10:00)
[2019-09-19] MEDS: NICOTINE 14 MG/24 HOURS TOPICAL PATCH TD SCH (10:32)
[2019-09-19] MEDS: PRENATAL VITAMINS W/ FOLIC ACID TABLET (FP) PO SCH (10:33)
[2019-09-19] MEDS: ABACAVIR/DOLUTEGRAVIR/LAMIVUDI (TRIUMEQ) TABLET -NF PO SCH (10:33)
--- NOTE | 2019-09-19 13:26 | PN ---
S CIWA - CIWA Score Nausea/Vomitin-No Nausea/No Vomiting Muscle Tremors: 2 Anxiety: 2 Agitation: 2 Paroxysmal Sweats: 2 Orientation: 0-Oriented Tacttile Disturbances: 0-None Auditory Disturbances: 0-None Visual Disturbances: 0-None Headache: 0-None Present CIWA-Ar Total Score: 8 BHS COWS - Scale Resting Pulse: 1= [place] 81-100 Sweatin= Chills/Flushing Restless Observation: 1= Difficult to Sit Still Pupil Size: 0= Normal to Room Light Bone or Joint Aches: 1= Mild Discomfort Runny Nose/ Eye Tearin= None GI Upset > 30mins: 0= None Tremor Observation of Outstretched Hands: 1= Tremor [place], Not Seen Yawning Observation: 1= 1-2x During Session Anxiety or Irritability: 1=Feels Anxious/Irritable Goose Flesh Skin: 0=Smooth Skin COWS Score: 7 S Progress Note (SOAP) Subjective: sleepy sweats interrupted sleep Objective: 09/19/19 13:24 Vital Signs Temperature 97.9 F 09/19/19 09:20 Pulse Rate 95 H 09/19/19 09:20 Respiratory Rate 18 09/19/19 09:20 Blood Pressure 122/85 09/19/19 09:20 O2 Sat by Pulse Oximetry (%) Laboratory Tests 09/17/19 09/17/19 09/17/19 13:38 14:40 14:40 WBC 4.5 RBC 3.76 Hgb 13.3 Hct 37.4 MCV 99.6 H MCH 35.3 H MCHC 35.5 RDW 13.1 Plt Count 272 MPV 8.9 Sodium 138 Potassium 4.0 Chloride 105 Carbon Dioxide 29 Anion Gap 4 L BUN 6.9 L Creatinine 0.5 L Est GFR (CKD-EPI)AfAm 127.17 Est GFR (CKD-EPI)NonAf 109.72 Random Glucose 91 Calcium 9.0 Total Bilirubin 0.2 AST 15 ALT 14 Alkaline Phosphatase 99 Total Protein 7.6 Albumin 3.2 L POC Urine HCG, Qual Negative RPR Titer 09/17/19 09/17/19 14:40 15:45 WBC RBC Hgb Hct MCV MCH MCHC RDW Plt Count MPV Sodium Potassium Chloride Carbon Dioxide Anion Gap BUN Creatinine Est GFR (CKD-EPI)AfAm Est GFR (CKD-EPI)NonAf Random Glucose Calcium Total Bilirubin AST ALT Alkaline Phosphatase Total Protein Albumin POC Urine HCG, Qual Negative RPR Titer Nonreactive aaox3 ambulating no acute distress Assessment: 09/19/19 13:26 withdrawals Plan: continue detox
[2019-09-19] MEDS: METHOCARBAMOL 500 MG TABLET PO PRN (22:32)
[2019-09-19] MEDS: MELATONIN 5 MG TABLETS PO PRN (22:32)
[2019-09-19] MEDS: THIAMINE HCL 100 MG TABLET (FP) PO SCH (22:32)
[2019-09-20] MEDS ORDERED: chlordiazePOXIDE HCL 10 MG CAPSULE PO PRN
[2019-09-20] MEDS: chlordiazePOXIDE HCL 10 MG CAPSULE PO SCH ×4 (05:54→22:08)
[2019-09-20] MEDS ORDERED: METHADONE HCL 5 MG TABLET (FOR DETOX USE ONLY) PO ONE (06:00)
[2019-09-20] MEDS: ABACAVIR/DOLUTEGRAVIR/LAMIVUDI (TRIUMEQ) TABLET -NF PO SCH (10:23)
[2019-09-20] MEDS: PRENATAL VITAMINS W/ FOLIC ACID TABLET (FP) PO SCH (10:23)
[2019-09-20] MEDS: NICOTINE 14 MG/24 HOURS TOPICAL PATCH TD SCH (10:23)
--- NOTE | 2019-09-20 14:29 | PN ---
S CIWA - CIWA Score Nausea/Vomitin-Mild Nausea/No Vomiting Muscle Tremors: 2 Anxiety: 1-Mildly Anxious Agitation: 1-Slight > Activity Paroxysmal Sweats: 2 Orientation: 0-Oriented Tacttile Disturbances: 0-None Auditory Disturbances: 0-None Visual Disturbances: 0-None Headache: 1-Very Mild CIWA-Ar Total Score: 8 S Progress Note (SOAP) Subjective: Sweats, tremors, back pain and interrupted sleep Objective: 09/20/19 14:28 Withdrawal sx Vital Signs 09/20/19 09/20/19 06:51 08:45 Temperature 97.9 F 97.9 F Pulse Rate 93 H 99 H Respiratory 16 18 Rate Blood Pressure 115/73 120/76 VSS Laboratory Last Values WBC 4.5 K/mm3 (4.0-10.0) 09/17/19 14:40 RBC 3.76 M/mm3 (3.60-5.2) 09/17/19 14:40 Hgb 13.3 GM/dL (10.7-15.3) 09/17/19 14:40 Hct 37.4 % (32.4-45.2) 09/17/19 14:40 MCV 99.6 fl (80-96) H 09/17/19 14:40 MCH 35.3 pg (25.7-33.7) H 09/17/19 14:40 MCHC 35.5 g/dl (32.0-36.0) 09/17/19 14:40 RDW 13.1 % (11.6-15.6) 09/17/19 14:40 Plt Count 272 K/MM3 (134-434) 09/17/19 14:40 MPV 8.9 fl (7.5-11.1) 09/17/19 14:40 Sodium 138 mmol/L (136-145) 09/17/19 14:40 Potassium 4.0 mmol/L (3.5-5.1) 09/17/19 14:40 Chloride 105 mmol/L (98-107) 09/17/19 14:40 Carbon Dioxide 29 mmol/L (21-32) 09/17/19 14:40 Anion Gap 4 MMOL/L (8-16) L 09/17/19 14:40 BUN 6.9 mg/dL (7-18) L 09/17/19 14:40 Creatinine 0.5 mg/dL (0.55-1.3) L 09/17/19 14:40 Est GFR (CKD-EPI)AfAm 127.17 09/17/19 14:40 Est GFR (CKD-EPI)NonAf 109.72 09/17/19 14:40 Random Glucose 91 mg/dL (74-106) 09/17/19 14:40 Calcium 9.0 mg/dL (8.5-10.1) 09/17/19 14:40 Total Bilirubin 0.2 mg/dL (0.2-1) 09/17/19 14:40 AST 15 U/L (15-37) 09/17/19 14:40 ALT 14 U/L (13-61) 09/17/19 14:40 Alkaline Phosphatase 99 U/L (45-117) 09/17/19 14:40 Total Protein 7.6 g/dl (6.4-8.2) 09/17/19 14:40 Albumin 3.2 g/dl (3.4-5.0) L 09/17/19 14:40 POC Urine HCG, Qual Negative 09/17/19 15:45 RPR Titer Nonreactive (NONREACTIVE) 09/17/19 14:40 Labs noted Assessment: 09/20/19 14:28 Withdrawal sx Plan: Continue detox
[2019-09-20] MEDS: THIAMINE HCL 100 MG TABLET (FP) PO SCH (22:08)
[2019-09-21] MEDS: chlordiazePOXIDE HCL 10 MG CAPSULE PO SCH ×2 (05:52→17:08)
[2019-09-21] MEDS: NICOTINE 14 MG/24 HOURS TOPICAL PATCH TD SCH (10:23)
[2019-09-21] MEDS: PRENATAL VITAMINS W/ FOLIC ACID TABLET (FP) PO SCH (10:23)
[2019-09-21] MEDS: ABACAVIR/DOLUTEGRAVIR/LAMIVUDI (TRIUMEQ) TABLET -NF PO SCH (10:24)
--- NOTE | 2019-09-21 16:07 | PN ---
S CIWA - CIWA Score Nausea/Vomitin-No Nausea/No Vomiting Muscle Tremors: None Anxiety: 2 Agitation: 2 Paroxysmal Sweats: 1-Minimal Palms Moist Orientation: 0-Oriented Tacttile Disturbances: 0-None Auditory Disturbances: 0-None Visual Disturbances: 0-None Headache: 0-None Present CIWA-Ar Total Score: 5 BHS Progress Note (SOAP) Subjective: Back pain, interrupted sleep Objective: 09/21/19 16:06 Last Vital Signs Temp Pulse Resp BP Pulse Ox 96.5 F L 112 H 18 129/75 09/21/19 12:30 09/21/19 12:30 09/21/19 12:30 09/21/19 12:30 Tachycardia most likely due to anxiety Laboratory Tests 09/17/19 09/17/19 09/17/19 13:38 14:40 14:40 WBC 4.5 RBC 3.76 Hgb 13.3 Hct 37.4 MCV 99.6 H MCH 35.3 H MCHC 35.5 RDW 13.1 Plt Count 272 MPV 8.9 Sodium 138 Potassium 4.0 Chloride 105 Carbon Dioxide 29 Anion Gap 4 L BUN 6.9 L Creatinine 0.5 L Est GFR (CKD-EPI)AfAm 127.17 Est GFR (CKD-EPI)NonAf 109.72 Random Glucose 91 Calcium 9.0 Total Bilirubin 0.2 AST 15 ALT 14 Alkaline Phosphatase 99 Total Protein 7.6 Albumin 3.2 L POC Urine HCG, Qual Negative RPR Titer 09/17/19 09/17/19 14:40 15:45 WBC RBC Hgb Hct MCV MCH MCHC RDW Plt Count MPV Sodium Potassium Chloride Carbon Dioxide Anion Gap BUN Creatinine Est GFR (CKD-EPI)AfAm Est GFR (CKD-EPI)NonAf Random Glucose Calcium Total Bilirubin AST ALT Alkaline Phosphatase Total Protein Albumin POC Urine HCG, Qual Negative RPR Titer Nonreactive Labs reviewed Assessment: 09/21/19 16:07 Withdrawal sxs Plan: Continue detox Encouraged PO water intake Scheduled for discharge tomorrow
[2019-09-21] MEDS: MELATONIN 5 MG TABLETS PO PRN (22:32)
[2019-09-21] MEDS: THIAMINE HCL 100 MG TABLET (FP) PO SCH (22:32)
[2019-09-22] MEDS ORDERED: chlordiazePOXIDE HCL 10 MG CAPSULE PO ONE (05:00)
--- NOTE | 2019-09-22 09:23 | DS ---
[facility] Detox Discharge Summary Admission Date: 09/17/19 - History Present History: Alcohol Dependence, Cannabis Dependence, Cocaine Dependence - Physical Exam Results Vital Signs: Vital Signs Temperature 97.9 F 09/22/19 08:16 Pulse Rate 98 H 09/22/19 08:16 Respiratory Rate 16 09/22/19 08:16 Blood Pressure 114/60 09/22/19 08:16 O2 Sat by Pulse Oximetry (%) Pertinent Admission Physical Exam Findings: Vital Signs Temperature 97.9 F 09/22/19 08:16 Pulse Rate 98 H 09/22/19 08:16 Respiratory Rate 16 09/22/19 08:16 Blood Pressure 114/60 09/22/19 08:16 O2 Sat by Pulse Oximetry (%) Laboratory Tests 09/17/19 09/17/19 09/17/19 13:38 14:40 14:40 WBC 4.5 RBC 3.76 Hgb 13.3 Hct 37.4 MCV 99.6 H MCH 35.3 H MCHC 35.5 RDW 13.1 Plt Count 272 MPV 8.9 Sodium 138 Potassium 4.0 Chloride 105 Carbon Dioxide 29 Anion Gap 4 L BUN 6.9 L Creatinine 0.5 L Est GFR (CKD-EPI)AfAm 127.17 Est GFR (CKD-EPI)NonAf 109.72 Random Glucose 91 Calcium 9.0 Total Bilirubin 0.2 AST 15 ALT 14 Alkaline Phosphatase 99 Total Protein 7.6 Albumin 3.2 L POC Urine HCG, Qual Negative RPR Titer 09/17/19 09/17/19 14:40 15:45 WBC RBC Hgb Hct MCV MCH MCHC RDW Plt Count MPV Sodium Potassium Chloride Carbon Dioxide Anion Gap BUN Creatinine Est GFR (CKD-EPI)AfAm Est GFR (CKD-EPI)NonAf Random Glucose Calcium Total Bilirubin AST ALT Alkaline Phosphatase Total Protein Albumin POC Urine HCG, Qual Negative RPR Titer Nonreactive aaox3 ambulating no acute distress +bs all four quadrants lungs CTA - Treatment Hospital Course: Detox Protocol Followed, Detoxed Safely, Responded well, Discharged Condition Good, Rehab Referral Accepted - Medication Discharge Medications: Ambulatory Orders Abacavir/Dolutegravir/Lamivudi [Triumeq 600-50-300 mg Tablet] 1 each PO DAILY Buprenorphine/Naloxone [Suboxone 8Mg/2Mg Sl Film -] 1 each SL BID 01/16/18 Quetiapine Fumarate [Seroquel -] 200 mg PO HS 09/17/19 - Diagnosis (1) Cannabis dependence Current Visit: Yes Status: Chronic (2) Substance induced mood disorder Current Visit: Yes Status: Acute (3) Substance-induced sleep disorder Current Visit: Yes Status: Acute (4) Alcohol dependence with uncomplicated withdrawal Current Visit: Yes Status: Chronic (5) Cocaine dependence Current Visit: Yes Status: Chronic (6) Drug-induced mood disorder Current Visit: No Status: Acute (7) Insomnia Current Visit: No Status: Acute (8) Substance-induced sleep disorder Current Visit: No Status: Acute (9) Chronic back pain Current Visit: Yes Status: Chronic Qualifiers: Back pain location: low back pain Back pain laterality: bilateral Sciatica presence: without sciatica Qualified Code(s): M54.5 - Low back pain; G89.29 - Other chronic pain; G89.29 - Other chronic pain (10) Encounter for monitoring Suboxone maintenance therapy Current Visit: No Status: Chronic (11) HIV (human immunodeficiency virus infection) Current Visit: No Status: Chronic Qualifiers: HIV symptom status: unspecified Qualified Code(s): B20 - Human immunodeficiency virus [HIV] disease (12) Nicotine dependence Current Visit: Yes Status: Chronic Qualifiers: Nicotine product type: cigarettes (13) Opioid dependence on agonist therapy Current Visit: No Status: Chronic (14) Weight loss Current Visit: No Status: Chronic (15) Depression (emotion) Current Visit: No Status: Suspected Qualifiers: Depression Type: dysthymia Qualified Code(s): F34.1 - Dysthymic disorder - AMA Did Patient Leave Against Medical Advice: No
[2019-09-22] MEDS: ABACAVIR/DOLUTEGRAVIR/LAMIVUDI (TRIUMEQ) TABLET -NF PO SCH (10:15)
[2019-09-22] MEDS: METHOCARBAMOL 500 MG TABLET PO PRN (10:17)
[2019-09-22] MEDS: NICOTINE 14 MG/24 HOURS TOPICAL PATCH TD SCH (10:18)
[2019-09-22] MEDS: PRENATAL VITAMINS W/ FOLIC ACID TABLET (FP) PO SCH (10:18)
[2019-09-22 11:33] VITALS: BP 124/88; PULSE 116; TEMP 98.1
== END 2019-09-22 11:50 | disposition other institution (70) | DRG 773 ==
LOC: YASAS 11:33 → Y6N 14:52
PROVIDERS: ADMIT Allergy & Immunology; ATTEND Allergy & Immunology
PROC: HZ2ZZZZ Detoxification Services for Substance Abuse Treatment (ICD-10-PCS; principal; 2019-09-17)
DX: F10.230 Alcohol dependence with withdrawal, uncomplicated (principal); F11.20 Opioid dependence, uncomplicated; F14.20 Cocaine dependence, uncomplicated; F12.20 Cannabis dependence, uncomplicated; F17.210 Nicotine dependence, cigarettes, uncomplicated; F19.24 Other psychoactive substance dependence with psychoactive substance-induced mood disorder; F19.282 Other psychoactive substance dependence with psychoactive substance-induced sleep disorder; Z21 Asymptomatic human immunodeficiency virus [HIV] infection status; G47.00 Insomnia, unspecified; M54.5 Low back pain; G89.29 Other chronic pain; R63.4 Abnormal weight loss; Z68.20 Body mass index [BMI] 20.0-20.9, adult; Z51.81 Encounter for therapeutic drug level monitoring; Z91.013 Allergy to seafood
CPT/HCPCS: 36415; 80053; 81025; 85027; 86593

== ENCOUNTER 2019-09-22 11:41 | Inpatient (IN) | payer OTHER ==
--- NOTE | 2019-09-22 11:52 | HP ---
[facility] Rehab Assess/Revision - Admission History Admitted to Rehab from[facility] - Findings Detox History & Physical reviewed: Yes Concur with findings: Yes Inpatient Rehab Admission - Rehab Decision to Admit Inpatient rehab admission?: Yes - Initial Determination Are CD services needed?: Yes Free of communicable disease: Yes Not in need of hospitalization: Yes - Rehab Admission Criteria Previous failed treatment: Yes Poor recovery environment: Yes Comorbidities: Yes Lacks judgement: Yes Patient is meeting Inpatient Rehab admission criteria:: Yes
[2019-09-22] MEDS ORDERED: guaiFENesin 200 MG/10 ML 10 ML UNIT-DOSE CUPS PO PRN (12:15)
[2019-09-22] MEDS ORDERED: P-EPHED 60MG/TRIPROLIDI 2.5MG TABLET PO PRN (12:15)
[2019-09-22] MEDS ORDERED: MAGNESIUM HYDROX 2400MG/30ML ORAL SUSPENSION 30 ML CUP PO PRN (12:15)
[2019-09-22] MEDS ORDERED: MAGNESIUM CITRATE 300 ML BOTTLE PO PRN (12:15)
[2019-09-22] MEDS ORDERED: MENTHOL/PHENOL 1 EACH UD MM PRN (12:15)
[2019-09-22] MEDS ORDERED: MAG HYDROX/AL HYDROX/SIMETH 30 ML UNIT-DOSE CUP PO PRN (12:15)
[2019-09-22] MEDS ORDERED: LOPERAMIDE HCL 2 MG CAPSULE PO PRN (12:15)
[2019-09-22] MEDS ORDERED: IBUPROFEN 400 MG TABLET (FP) PO PRN (12:15)
--- NOTE | 2019-09-22 14:06 | PN ---
S Progress Note Note: Patient admitted to rehab from [address] [place] [address] Opiod/ETOH dependence. PMH includes HIV+ , on Triumeq. Labs reviewed, VSS. Vital Signs Period Temp Pulse Resp BP Sys/Drake Pulse Ox Last 24 Hr 97.4 F 116 16 136/80 ROS: denies shakes, sweating and restlessness. PE: alert and oriented x 3 skin warm and dry +perrla, eoms intact bl ext full rom, amb ad mary A/P: Opiod dependence ETOH dependence Continue rehab services.
--- NOTE | 2019-09-22 15:37 | PN ---
[facility] Progress Note Note: Pt is a 54 y/o female with a hx of TASHI admitted to rehab this afternoon from [address]. Pt reports she has a primary care doctor at [facility]-Dr. Deo Shah.Pt was on Meth/Vashti regimen detox. Last dose of Methadone was 5mg po on Sunday09/20/19 as per nurse Krysten. Pt wants to get back on Suboxone MAT with 8 mg/2 mg sl film twice a day. Pt is connected to [facility] in the [place], [place] but reports she fell off after relapsing-"i started using dope". Reports she was supposed to brain picker her next dose last 01/30 from her pharmacy Pharmacy, [place], [place]. Below is verification from [facility] site: Others' Prescriptions Patient Name: Lazara Castaneda Date: 1965 Address: [facility] DIANNE RAMOS [address] [place] [id number] Sex: Female Rx Written Rx Dispensed Drug Quantity Days Supply Prescriber Name 09/02/2019 09/02/2019 buprenorphine-naloxone 8-2 mg sl film 42 21 Lynnette Wilhelm E 08/01/2019 08/01/2019 buprenorphine-naloxone 8-2 mg sl film 60 30 Galeano, Allareddy V K 07/04/2019 07/04/2019 buprenorphine-naloxone 8-2 mg sl film 60 30 Galeano, Allareddy V K 06/05/2019 06/05/2019 buprenorphine-naloxone 8-2 mg sl film 60 30 Galeano, Allareddy V K 05/02/2019 05/02/2019 buprenorphine-naloxone 8-2 mg sl film 60 30 Galeano, Allareddy V K 04/18/2019 04/18/2019 buprenorphine-naloxone 8-2 mg sl film 28 14 Galeano, Allareddy V K 03/21/2019 03/21/2019 buprenorphine-naloxone 8-2 mg sl film 60 30 Galeano, Allareddy V K 02/21/2019 02/21/2019 buprenorphine-naloxone 8-2 mg sl film 60 30 Galeano, Allareddy V K 01/24/2019 01/24/2019 buprenorphine-naloxone 8-2 mg sl film 60 30 Galeano, Allareddy V K 12/27/2018 12/27/2018 buprenorphine-naloxone 8-2 mg sl film 60 30 Galeano, Allareddy V K 11/28/2018 11/28/2018 buprenorphine-naloxone 8-2 mg sl tablet 60 30 GaleanoJef gary 11/21/2018 11/21/2018 buprenorphine-naloxone 8-2 mg sl film 14 7 Jef Galeano 10/21/2018 10/21/2018 buprenorphine-naloxone 8-2 mg sl film 60 30 GaleanoJef gary 10/07/2018 10/07/2018 buprenorphine-naloxone 8-2 mg sl film 30 15 Jef Galeano 09/23/2018 09/23/2018 suboxone 8 mg-2 mg sl film 28 14 Jef Galeano * - Drugs marked with an asterisk are compound drugs. If the compound drug is made up of more than one controlled substance, then each controlled substance will be a separate row in the table. Alert o x 3 nad oob ambulating with steady gait extremities/skin:no edema;skin intact A/P TASHI Suboxone MAT patient Maintain safety UDS in A.M D/w patient will restart Suboxone probably tomorrow.
[2019-09-22] MEDS: hydrOXYzine PAMOATE 50 MG CAPSULE (FP) PO PRN (21:39)
[2019-09-22] MEDS: MELATONIN 5 MG TABLETS PO PRN (21:39)
[2019-09-22] MEDS: THIAMINE HCL 100 MG TABLET (FP) PO SCH (21:39)
[2019-09-23] MEDS ORDERED: PT OWN MED DRAWER 7, Y5N ONE (08:50)
--- NOTE | 2019-09-23 09:48 | PN ---
[facility] COWS - Scale Resting Pulse: 1= [place] 81-100 Sweatin=Flushed/Facial Moisture Restless Observation: 1= Difficult to Sit Still Pupil Size: 0= Normal to Room Light Bone or Joint Aches: 2= Severe Diffuse Aches Runny Nose/ Eye Tearin= Nasal Congestion GI Upset > 30mins: 1= Stomach Cramp Tremor Observation of Outstretched Hands: 2= Slight Tremor Visible Yawning Observation: 0= None Anxiety or Irritability: 1=Feels Anxious/Irritable Goose Flesh Skin: 0=Smooth Skin COWS Score: 11 [facility] Progress Note (SOAP) Subjective: patient wants to start on suboxone. She was receiving in the community be Dr. Galeano at [facility]. Now feeling anxious, crying. PMHx: Please see previous note that outlines her suboxone prescriptions from Dr. Galeano Objective: general: anxious HEENTM: NARES-congeste neck: supple Lungs; clear Heart: s1 s2 ABD+BS 09/23/19 09:51 Assessment: opioid dependance on suboxone MAT 09/23/19 09:52 Plan: Will start Ms. Castaneda on 4mg BID, reassess tomorrow. Patient agrees with plan.
[2019-09-23] MEDS: PRENATAL VITAMINS W/ FOLIC ACID TABLET (FP) PO SCH (09:59)
[2019-09-23] MEDS: NICOTINE 14 MG/24 HOURS TOPICAL PATCH TD SCH (09:59)
[2019-09-23] MEDS: ABACAVIR/DOLUTEGRAVIR/LAMIVUDI (TRIUMEQ) TABLET -NF PO SCH (09:59)
[2019-09-23] MEDS: BUPRENORPHINE/NALOXONE 4 MG/1 MG FILM PACKET SL SCH ×2 (10:47→17:53)
[2019-09-23] MEDS: MELATONIN 5 MG TABLETS PO PRN (21:07)
[2019-09-23] MEDS: THIAMINE HCL 100 MG TABLET (FP) PO SCH (21:07)
[2019-09-24] MEDS: NICOTINE 14 MG/24 HOURS TOPICAL PATCH TD SCH (09:37)
[2019-09-24] MEDS: ABACAVIR/DOLUTEGRAVIR/LAMIVUDI (TRIUMEQ) TABLET -NF PO SCH (09:38)
[2019-09-24] MEDS: BUPRENORPHINE/NALOXONE 4 MG/1 MG FILM PACKET SL SCH (09:38)
[2019-09-24] MEDS: PRENATAL VITAMINS W/ FOLIC ACID TABLET (FP) PO SCH (09:38)
--- NOTE | 2019-09-24 15:27 | PN ---
[facility] COWS - Scale Resting Pulse: 1= WI 81-100 Sweatin=Flushed/Facial Moisture Restless Observation: 0= Sits Still Pupil Size: 0= Normal to Room Light Bone or Joint Aches: 2= Severe Diffuse Aches Runny Nose/ Eye Tearin= Nasal Congestion GI Upset > 30mins: 1= Stomach Cramp Tremor Observation of Outstretched Hands: 2= Slight Tremor Visible Yawning Observation: 0= None Anxiety or Irritability: 1=Feels Anxious/Irritable Goose Flesh Skin: 0=Smooth Skin COWS Score: 10 [facility] Progress Note (SOAP) Subjective: patient reports she continues to feel the effects of withdrawal. She was previously on 8mg of suboxone twice daily prior to her relapse. She has a provider who treats her with MAT. Objective: 09/24/19 15:25 Vital Signs Period Temp Pulse Resp BP Sys/Drake Pulse Ox Last 24 Hr 98.0 F 89 16-18 123/79 URINE DRUG SCREEN RESULTS Drug Screen Negative No Urine Drug Screen Results BZO-Benzodiazepines,MTD-Methadone,BUP-Suboxone P/E general: anxious HEENTM: normocephalic, PERRLA ABD: +BD MSK: Full weight bearing, ROM, steady gait Extremities: slight trembling of arms. Assessment: Withdrawal from opioids 09/24/19 15:26 Plan: Increase suboxone to 8mg BID.
[2019-09-24 16:12] LABS: EPI CELLS 11.1 /HPF (0-5/HPF); HYALINE CASTS 20 /lpf (0-8); PH,URINE 5.5 (5.0-8.0); URINE APPEARANCE CLOUDY; URINE BACTERIA 394.9 /hpf (NEGATIVE); URINE BILIRUBIN NEGATIVE (NEGATIVE); URINE COLOR YELLOW; URINE GLUCOSE (UA) NEGATIVE (NEGATIVE); URINE KETONE TRACE (NEGATIVE); URINE LEUK ESTERASE 1+ (NEGATIVE); URINE NITRITE NEGATIVE (NEGATIVE); URINE PROTEIN NEGATIVE (NEGATIVE); URINE UROBILINOGEN 0.2 mg/dL (0.2-1.0); URINE WBC 25 /hpf (0-5)
[2019-09-24] MEDS: BUPRENORPHINE/NALOXONE 8 MG/2 MG FILM PACKET SL SCH (17:04)
[2019-09-24 17:46] LABS: URINE RBC 3 /hpf (0-4)
[2019-09-24] MEDS: MELATONIN 5 MG TABLETS PO PRN (21:55)
[2019-09-24] MEDS: THIAMINE HCL 100 MG TABLET (FP) PO SCH (21:55)
[2019-09-25] MEDS ORDERED: PT OWN MED DRAWER 7, Y5N ONE (08:29)
[2019-09-25] MEDS: NICOTINE 14 MG/24 HOURS TOPICAL PATCH TD SCH (09:41)
[2019-09-25] MEDS: ABACAVIR/DOLUTEGRAVIR/LAMIVUDI (TRIUMEQ) TABLET -NF PO SCH (09:41)
[2019-09-25] MEDS: PRENATAL VITAMINS W/ FOLIC ACID TABLET (FP) PO SCH (09:41)
[2019-09-25] MEDS: BUPRENORPHINE/NALOXONE 8 MG/2 MG FILM PACKET SL SCH ×2 (09:42→17:46)
[2019-09-25] MEDS: MELATONIN 5 MG TABLETS PO PRN (21:52)
[2019-09-25] MEDS: THIAMINE HCL 100 MG TABLET (FP) PO SCH (21:52)
[2019-09-26] MEDS: NICOTINE 14 MG/24 HOURS TOPICAL PATCH TD SCH (09:42)
[2019-09-26] MEDS: PRENATAL VITAMINS W/ FOLIC ACID TABLET (FP) PO SCH (09:43)
[2019-09-26] MEDS: BUPRENORPHINE/NALOXONE 8 MG/2 MG FILM PACKET SL SCH ×2 (09:43→17:57)
[2019-09-26] MEDS: ABACAVIR/DOLUTEGRAVIR/LAMIVUDI (TRIUMEQ) TABLET -NF PO SCH (09:43)
[2019-09-26] MEDS: MELATONIN 5 MG TABLETS PO PRN (21:56)
[2019-09-26] MEDS: THIAMINE HCL 100 MG TABLET (FP) PO SCH (21:56)
[2019-09-27] MEDS: ACETAMINOPHEN 325 MG TABLET (FP) PO PRN (06:46)
[2019-09-27] MEDS ORDERED: PT OWN MED DRAWER 7, Y5N ONE (08:57)
[2019-09-27] MEDS: NICOTINE 14 MG/24 HOURS TOPICAL PATCH TD SCH (09:43)
[2019-09-27] MEDS: ABACAVIR/DOLUTEGRAVIR/LAMIVUDI (TRIUMEQ) TABLET -NF PO SCH (09:44)
[2019-09-27] MEDS: BUPRENORPHINE/NALOXONE 8 MG/2 MG FILM PACKET SL SCH ×2 (09:44→18:00)
[2019-09-27] MEDS: PRENATAL VITAMINS W/ FOLIC ACID TABLET (FP) PO SCH (09:44)
[2019-09-27] MEDS: MELATONIN 5 MG TABLETS PO PRN (21:30)
[2019-09-27] MEDS: THIAMINE HCL 100 MG TABLET (FP) PO SCH (21:31)
[2019-09-28] MEDS ORDERED: PT OWN MED DRAWER 7, Y5N ONE (08:42)
[2019-09-28] MEDS: NICOTINE 14 MG/24 HOURS TOPICAL PATCH TD SCH (10:10)
[2019-09-28] MEDS: PRENATAL VITAMINS W/ FOLIC ACID TABLET (FP) PO SCH (10:10)
[2019-09-28] MEDS: ABACAVIR/DOLUTEGRAVIR/LAMIVUDI (TRIUMEQ) TABLET -NF PO SCH (10:11)
[2019-09-28] MEDS: BUPRENORPHINE/NALOXONE 8 MG/2 MG FILM PACKET SL SCH ×2 (10:11→17:55)
[2019-09-28] MEDS: MELATONIN 5 MG TABLETS PO PRN (21:17)
[2019-09-28] MEDS: THIAMINE HCL 100 MG TABLET (FP) PO SCH (21:17)
[2019-09-29] MEDS: NICOTINE 14 MG/24 HOURS TOPICAL PATCH TD SCH (09:49)
[2019-09-29] MEDS: BUPRENORPHINE/NALOXONE 8 MG/2 MG FILM PACKET SL SCH ×2 (09:50→17:54)
[2019-09-29] MEDS: PRENATAL VITAMINS W/ FOLIC ACID TABLET (FP) PO SCH (09:50)
[2019-09-29] MEDS: ABACAVIR/DOLUTEGRAVIR/LAMIVUDI (TRIUMEQ) TABLET -NF PO SCH (09:50)
[2019-09-29] MEDS: MELATONIN 5 MG TABLETS PO PRN (21:25)
[2019-09-29] MEDS: THIAMINE HCL 100 MG TABLET (FP) PO SCH (21:25)
--- NOTE | 2019-09-30 07:29 | PN ---
[facility] Progress Note Note: C/o redness (L) eye noted when woke this am. States eye has an itchy feeling. Denies visual change. No nasal congestion. (R) sclera w/ increased erythema. No discharge/exudate. Plan: Erythromycin quintin x 5 days.
[2019-09-30] MEDS ORDERED: COLLOIDAL OATMEAL 1 BAR EACH TP PRN (08:27)
[2019-09-30] MEDS ORDERED: PT OWN MED DRAWER 7, Y5N ONE ×2 (08:44→19:13)
[2019-09-30] MEDS: NICOTINE 14 MG/24 HOURS TOPICAL PATCH TD SCH (09:57)
[2019-09-30] MEDS: ABACAVIR/DOLUTEGRAVIR/LAMIVUDI (TRIUMEQ) TABLET -NF PO SCH (09:57)
[2019-09-30] MEDS: PRENATAL VITAMINS W/ FOLIC ACID TABLET (FP) PO SCH (09:57)
[2019-09-30] MEDS: BUPRENORPHINE/NALOXONE 8 MG/2 MG FILM PACKET SL SCH ×2 (09:57→17:41)
[2019-09-30] MEDS: ERYTHROMYCIN 0.5% OPHTHALMIC OINTMENT 3.5 GM TUBE OD SCH ×2 (10:12→21:27)
[2019-09-30] MEDS: THIAMINE HCL 100 MG TABLET (FP) PO SCH (21:28)
[2019-09-30] MEDS: hydrOXYzine PAMOATE 50 MG CAPSULE (FP) PO PRN (21:28)
[2019-09-30] MEDS: MELATONIN 5 MG TABLETS PO PRN (21:28)
[2019-10-01] MEDS: BUPRENORPHINE/NALOXONE 8 MG/2 MG FILM PACKET SL SCH ×2 (09:45→17:47)
[2019-10-01] MEDS: PRENATAL VITAMINS W/ FOLIC ACID TABLET (FP) PO SCH (09:45)
[2019-10-01] MEDS: NICOTINE 14 MG/24 HOURS TOPICAL PATCH TD SCH (09:45)
[2019-10-01] MEDS: ABACAVIR/DOLUTEGRAVIR/LAMIVUDI (TRIUMEQ) TABLET -NF PO SCH (09:46)
[2019-10-01] MEDS: ERYTHROMYCIN 0.5% OPHTHALMIC OINTMENT 3.5 GM TUBE OD SCH ×2 (09:46→21:23)
[2019-10-01] MEDS ORDERED: BENZOCAINE 20 % GEL TUBE MM PRN (09:51)
--- NOTE | 2019-10-01 10:16 | PN ---
[facility] Progress Note (SOAP) Subjective: Patient with c/o toothache. Started on amoxicillin several days ago. Taking Motrin without relief. Objective: Vital Signs Period Temp Pulse Resp BP Sys/Drake Pulse Ox Last 24 Hr 98.2 F 82 16-18 104/64 10/01/19 10:15 P/E General: appears to be in pain HEENTM: meghan
[2019-10-01] MEDS ORDERED: MAG HYDROX/ALH/SMC/DPHA/LIDO 240 ML MOUTHWASH MM SCH (12:00)
[2019-10-01] MEDS: THIAMINE HCL 100 MG TABLET (FP) PO SCH (21:22)
[2019-10-01] MEDS: MELATONIN 5 MG TABLETS PO PRN (21:22)
[2019-10-01] MEDS: hydrOXYzine PAMOATE 50 MG CAPSULE (FP) PO PRN (21:22)
[2019-10-02] MEDS ORDERED: PT OWN MED DRAWER 7, Y5N ONE ×2 (08:05→10:04)
[2019-10-02] MEDS: ABACAVIR/DOLUTEGRAVIR/LAMIVUDI (TRIUMEQ) TABLET -NF PO SCH (10:02)
[2019-10-02] MEDS: PRENATAL VITAMINS W/ FOLIC ACID TABLET (FP) PO SCH (10:02)
[2019-10-02] MEDS: NICOTINE 14 MG/24 HOURS TOPICAL PATCH TD SCH (10:02)
[2019-10-02] MEDS: BUPRENORPHINE/NALOXONE 8 MG/2 MG FILM PACKET SL SCH ×2 (10:03→17:45)
[2019-10-02] MEDS: NICOTINE POLACRILEX 2 MG GUM BUC PRN (10:04)
[2019-10-02] MEDS: ERYTHROMYCIN 0.5% OPHTHALMIC OINTMENT 3.5 GM TUBE OD SCH ×2 (10:04→21:32)
[2019-10-02] MEDS: hydrOXYzine PAMOATE 50 MG CAPSULE (FP) PO PRN (21:32)
[2019-10-02] MEDS: MELATONIN 5 MG TABLETS PO PRN (21:32)
[2019-10-02] MEDS: THIAMINE HCL 100 MG TABLET (FP) PO SCH (21:32)
[2019-10-03] MEDS: ABACAVIR/DOLUTEGRAVIR/LAMIVUDI (TRIUMEQ) TABLET -NF PO SCH (09:59)
[2019-10-03] MEDS: PRENATAL VITAMINS W/ FOLIC ACID TABLET (FP) PO SCH (10:00)
[2019-10-03] MEDS: NICOTINE POLACRILEX 2 MG GUM BUC PRN (10:00)
[2019-10-03] MEDS: BUPRENORPHINE/NALOXONE 8 MG/2 MG FILM PACKET SL SCH ×2 (10:00→18:03)
[2019-10-03] MEDS: NICOTINE 14 MG/24 HOURS TOPICAL PATCH TD SCH (10:00)
[2019-10-03] MEDS: ERYTHROMYCIN 0.5% OPHTHALMIC OINTMENT 3.5 GM TUBE OD SCH ×2 (10:01→21:26)
[2019-10-03] MEDS: MELATONIN 5 MG TABLETS PO PRN (21:25)
[2019-10-03] MEDS: hydrOXYzine PAMOATE 50 MG CAPSULE (FP) PO PRN (21:25)
[2019-10-03] MEDS: THIAMINE HCL 100 MG TABLET (FP) PO SCH (21:25)
[2019-10-04] MEDS ORDERED: PT OWN MED DRAWER 7, Y5N ONE ×2 (08:01→22:54)
[2019-10-04] MEDS: ERYTHROMYCIN 0.5% OPHTHALMIC OINTMENT 3.5 GM TUBE OD SCH ×2 (10:06→21:26)
[2019-10-04] MEDS: NICOTINE 14 MG/24 HOURS TOPICAL PATCH TD SCH (10:07)
[2019-10-04] MEDS: PRENATAL VITAMINS W/ FOLIC ACID TABLET (FP) PO SCH (10:07)
[2019-10-04] MEDS: ABACAVIR/DOLUTEGRAVIR/LAMIVUDI (TRIUMEQ) TABLET -NF PO SCH (10:08)
[2019-10-04] MEDS: BUPRENORPHINE/NALOXONE 8 MG/2 MG FILM PACKET SL SCH ×2 (10:08→17:43)
[2019-10-04] MEDS: THIAMINE HCL 100 MG TABLET (FP) PO SCH (21:26)
[2019-10-04] MEDS: MELATONIN 5 MG TABLETS PO PRN (21:26)
[2019-10-04] MEDS: NICOTINE POLACRILEX 2 MG GUM BUC PRN (21:27)
[2019-10-04] MEDS: hydrOXYzine PAMOATE 50 MG CAPSULE (FP) PO PRN (21:27)
[2019-10-05] MEDS ORDERED: PT OWN MED DRAWER 7, Y5N ONE ×2 (08:02→21:40)
[2019-10-05] MEDS: NICOTINE 14 MG/24 HOURS TOPICAL PATCH TD SCH (09:49)
[2019-10-05] MEDS: ABACAVIR/DOLUTEGRAVIR/LAMIVUDI (TRIUMEQ) TABLET -NF PO SCH (09:50)
[2019-10-05] MEDS: PRENATAL VITAMINS W/ FOLIC ACID TABLET (FP) PO SCH (09:50)
[2019-10-05] MEDS: BUPRENORPHINE/NALOXONE 8 MG/2 MG FILM PACKET SL SCH ×2 (09:51→17:42)
[2019-10-05] MEDS: NICOTINE POLACRILEX 2 MG GUM BUC PRN (09:51)
[2019-10-05] MEDS: THIAMINE HCL 100 MG TABLET (FP) PO SCH (21:20)
[2019-10-05] MEDS: hydrOXYzine PAMOATE 50 MG CAPSULE (FP) PO PRN (21:20)
[2019-10-05] MEDS: MELATONIN 5 MG TABLETS PO PRN (21:20)
[2019-10-06] MEDS: PRENATAL VITAMINS W/ FOLIC ACID TABLET (FP) PO SCH (09:51)
[2019-10-06] MEDS: NICOTINE 14 MG/24 HOURS TOPICAL PATCH TD SCH (09:51)
[2019-10-06] MEDS: ABACAVIR/DOLUTEGRAVIR/LAMIVUDI (TRIUMEQ) TABLET -NF PO SCH (09:52)
[2019-10-06] MEDS: BUPRENORPHINE/NALOXONE 8 MG/2 MG FILM PACKET SL SCH ×2 (09:52→18:04)
[2019-10-06] MEDS: NICOTINE POLACRILEX 2 MG GUM BUC PRN (09:53)
[2019-10-06] MEDS: MELATONIN 5 MG TABLETS PO PRN (21:33)
[2019-10-06] MEDS: hydrOXYzine PAMOATE 50 MG CAPSULE (FP) PO PRN (21:33)
[2019-10-06] MEDS: THIAMINE HCL 100 MG TABLET (FP) PO SCH (21:33)
[2019-10-07] MEDS ORDERED: PT OWN MED DRAWER 7, Y5N ONE (08:49)
[2019-10-07] MEDS: ABACAVIR/DOLUTEGRAVIR/LAMIVUDI (TRIUMEQ) TABLET -NF PO SCH (09:58)
[2019-10-07] MEDS: PRENATAL VITAMINS W/ FOLIC ACID TABLET (FP) PO SCH (09:58)
[2019-10-07] MEDS: NICOTINE 14 MG/24 HOURS TOPICAL PATCH TD SCH (09:58)
[2019-10-07] MEDS: NICOTINE POLACRILEX 2 MG GUM BUC PRN (10:01)
[2019-10-07] MEDS: BUPRENORPHINE/NALOXONE 8 MG/2 MG FILM PACKET SL SCH ×2 (11:10→17:57)
[2019-10-07] MEDS: hydrOXYzine PAMOATE 50 MG CAPSULE (FP) PO PRN (21:28)
[2019-10-07] MEDS: MELATONIN 5 MG TABLETS PO PRN (21:28)
[2019-10-07] MEDS: THIAMINE HCL 100 MG TABLET (FP) PO SCH (21:28)
[2019-10-08] MEDS: NICOTINE 14 MG/24 HOURS TOPICAL PATCH TD SCH (09:38)
[2019-10-08] MEDS: PRENATAL VITAMINS W/ FOLIC ACID TABLET (FP) PO SCH (09:39)
[2019-10-08] MEDS: ABACAVIR/DOLUTEGRAVIR/LAMIVUDI (TRIUMEQ) TABLET -NF PO SCH (09:40)
[2019-10-08] MEDS: BUPRENORPHINE/NALOXONE 8 MG/2 MG FILM PACKET SL SCH ×2 (09:40→18:35)
[2019-10-08] MEDS: NICOTINE POLACRILEX 2 MG GUM BUC PRN (09:40)
[2019-10-08] MEDS ORDERED: BUPRENORPHINE/NALOXONE 8 MG/2 MG FILM PACKET SL SCH (18:00)
[2019-10-08] MEDS: hydrOXYzine PAMOATE 50 MG CAPSULE (FP) PO PRN (21:33)
[2019-10-08] MEDS: MELATONIN 5 MG TABLETS PO PRN (21:33)
[2019-10-08] MEDS: THIAMINE HCL 100 MG TABLET (FP) PO SCH (21:33)
[2019-10-09] MEDS: BUPRENORPHINE/NALOXONE 8 MG/2 MG FILM PACKET SL SCH ×2 (09:31→18:05)
[2019-10-09] MEDS: PRENATAL VITAMINS W/ FOLIC ACID TABLET (FP) PO SCH (09:31)
[2019-10-09] MEDS: ABACAVIR/DOLUTEGRAVIR/LAMIVUDI (TRIUMEQ) TABLET -NF PO SCH (09:31)
[2019-10-09] MEDS: NICOTINE 14 MG/24 HOURS TOPICAL PATCH TD SCH (09:31)
[2019-10-09] MEDS: NICOTINE POLACRILEX 2 MG GUM BUC PRN (09:32)
[2019-10-09] MEDS ORDERED: COLLOIDAL OATMEAL 1 BAR EACH TP PRN (10:05)
[2019-10-09] MEDS ORDERED: PT OWN MED DRAWER 7, Y5N ONE ×2 (10:25→21:10)
[2019-10-09] MEDS: hydrOXYzine PAMOATE 50 MG CAPSULE (FP) PO PRN (21:20)
[2019-10-09] MEDS: MELATONIN 5 MG TABLETS PO PRN (21:20)
[2019-10-09] MEDS: THIAMINE HCL 100 MG TABLET (FP) PO SCH (21:20)
[2019-10-10] MEDS ORDERED: PT OWN MED DRAWER 7, Y5N ONE (08:05)
[2019-10-10] MEDS: PRENATAL VITAMINS W/ FOLIC ACID TABLET (FP) PO SCH (09:46)
[2019-10-10] MEDS: ABACAVIR/DOLUTEGRAVIR/LAMIVUDI (TRIUMEQ) TABLET -NF PO SCH (09:46)
[2019-10-10] MEDS: NICOTINE 14 MG/24 HOURS TOPICAL PATCH TD SCH (09:46)
[2019-10-10] MEDS: BUPRENORPHINE/NALOXONE 8 MG/2 MG FILM PACKET SL SCH ×2 (09:46→17:42)
[2019-10-10] MEDS: NICOTINE POLACRILEX 2 MG GUM BUC PRN (09:47)
[2019-10-10] MEDS: THIAMINE HCL 100 MG TABLET (FP) PO SCH (21:18)
[2019-10-10] MEDS: hydrOXYzine PAMOATE 50 MG CAPSULE (FP) PO PRN (21:19)
[2019-10-10] MEDS: MELATONIN 5 MG TABLETS PO PRN (21:19)
[2019-10-11] MEDS ORDERED: PT OWN MED DRAWER 7, Y5N ONE ×2 (09:03→21:05)
[2019-10-11] MEDS: NICOTINE 14 MG/24 HOURS TOPICAL PATCH TD SCH (09:33)
[2019-10-11] MEDS: ABACAVIR/DOLUTEGRAVIR/LAMIVUDI (TRIUMEQ) TABLET -NF PO SCH (09:34)
[2019-10-11] MEDS: PRENATAL VITAMINS W/ FOLIC ACID TABLET (FP) PO SCH (09:34)
[2019-10-11] MEDS: BUPRENORPHINE/NALOXONE 8 MG/2 MG FILM PACKET SL SCH ×2 (09:34→17:23)
[2019-10-11] MEDS: THIAMINE HCL 100 MG TABLET (FP) PO SCH (21:15)
[2019-10-11] MEDS: MELATONIN 5 MG TABLETS PO PRN (21:15)
[2019-10-11] MEDS: hydrOXYzine PAMOATE 50 MG CAPSULE (FP) PO PRN (21:15)
[2019-10-12] MEDS ORDERED: PT OWN MED DRAWER 7, Y5N ONE (08:43)
[2019-10-12] MEDS: ABACAVIR/DOLUTEGRAVIR/LAMIVUDI (TRIUMEQ) TABLET -NF PO SCH (09:45)
[2019-10-12] MEDS: BUPRENORPHINE/NALOXONE 8 MG/2 MG FILM PACKET SL SCH ×2 (09:45→17:37)
[2019-10-12] MEDS: PRENATAL VITAMINS W/ FOLIC ACID TABLET (FP) PO SCH (09:45)
[2019-10-12] MEDS: NICOTINE POLACRILEX 2 MG GUM BUC PRN (09:45)
[2019-10-12] MEDS: NICOTINE 14 MG/24 HOURS TOPICAL PATCH TD SCH (09:50)
[2019-10-12] MEDS: hydrOXYzine PAMOATE 50 MG CAPSULE (FP) PO PRN (21:25)
[2019-10-12] MEDS: MELATONIN 5 MG TABLETS PO PRN (21:25)
[2019-10-12] MEDS: THIAMINE HCL 100 MG TABLET (FP) PO SCH (21:25)
[2019-10-13] MEDS: PRENATAL VITAMINS W/ FOLIC ACID TABLET (FP) PO SCH (09:38)
[2019-10-13] MEDS: NICOTINE 14 MG/24 HOURS TOPICAL PATCH TD SCH (09:38)
[2019-10-13] MEDS: ABACAVIR/DOLUTEGRAVIR/LAMIVUDI (TRIUMEQ) TABLET -NF PO SCH (09:39)
[2019-10-13] MEDS: BUPRENORPHINE/NALOXONE 8 MG/2 MG FILM PACKET SL SCH ×2 (09:39→16:59)
[2019-10-13] MEDS ORDERED: PT OWN MED DRAWER 7, Y5N ONE (20:54)
[2019-10-13] MEDS: THIAMINE HCL 100 MG TABLET (FP) PO SCH (21:17)
[2019-10-13] MEDS: hydrOXYzine PAMOATE 50 MG CAPSULE (FP) PO PRN (21:18)
[2019-10-13] MEDS: MELATONIN 5 MG TABLETS PO PRN (21:18)
[2019-10-14] MEDS ORDERED: PT OWN MED DRAWER 7, Y5N ONE ×2 (08:54→10:45)
[2019-10-14] MEDS: ABACAVIR/DOLUTEGRAVIR/LAMIVUDI (TRIUMEQ) TABLET -NF PO SCH (09:50)
[2019-10-14] MEDS: NICOTINE POLACRILEX 2 MG GUM BUC PRN (09:50)
[2019-10-14] MEDS: PRENATAL VITAMINS W/ FOLIC ACID TABLET (FP) PO SCH (09:50)
[2019-10-14] MEDS: NICOTINE 14 MG/24 HOURS TOPICAL PATCH TD SCH (09:50)
[2019-10-14] MEDS ORDERED: BUPRENORPHINE/NALOXONE 8 MG/2 MG FILM PACKET SL ONE (10:39)
[2019-10-14] MEDS ORDERED: BUPRENORPHINE/NALOXONE 8 MG/2 MG FILM PACKET SL SCH (11:00)
[2019-10-14] MEDS: BUPRENORPHINE/NALOXONE 8 MG/2 MG FILM PACKET SL SCH (17:29)
[2019-10-14] MEDS: hydrOXYzine PAMOATE 50 MG CAPSULE (FP) PO PRN (21:21)
[2019-10-14] MEDS: THIAMINE HCL 100 MG TABLET (FP) PO SCH (21:21)
[2019-10-14] MEDS: MELATONIN 5 MG TABLETS PO PRN (21:21)
[2019-10-15] MEDS ORDERED: PT OWN MED DRAWER 7, Y5N ONE (09:21)
[2019-10-15] MEDS: PRENATAL VITAMINS W/ FOLIC ACID TABLET (FP) PO SCH (09:34)
[2019-10-15] MEDS: ABACAVIR/DOLUTEGRAVIR/LAMIVUDI (TRIUMEQ) TABLET -NF PO SCH (09:34)
[2019-10-15] MEDS: NICOTINE POLACRILEX 2 MG GUM BUC PRN (09:35)
[2019-10-15] MEDS: NICOTINE 14 MG/24 HOURS TOPICAL PATCH TD SCH (09:35)
[2019-10-15] MEDS: BUPRENORPHINE/NALOXONE 8 MG/2 MG FILM PACKET SL SCH ×2 (09:35→17:45)
[2019-10-15] MEDS: ACETAMINOPHEN 325 MG TABLET (FP) PO PRN (19:42)
[2019-10-15] MEDS: hydrOXYzine PAMOATE 50 MG CAPSULE (FP) PO PRN (21:08)
[2019-10-15] MEDS: MELATONIN 5 MG TABLETS PO PRN (21:08)
[2019-10-15] MEDS: THIAMINE HCL 100 MG TABLET (FP) PO SCH (21:08)
[2019-10-16] MEDS: ACETAMINOPHEN 325 MG TABLET (FP) PO PRN (07:05)
[2019-10-16] MEDS ORDERED: PT OWN MED DRAWER 7, Y5N ONE (08:10)
[2019-10-16] MEDS: PRENATAL VITAMINS W/ FOLIC ACID TABLET (FP) PO SCH (09:19)
[2019-10-16] MEDS: ABACAVIR/DOLUTEGRAVIR/LAMIVUDI (TRIUMEQ) TABLET -NF PO SCH (09:19)
[2019-10-16] MEDS: BUPRENORPHINE/NALOXONE 8 MG/2 MG FILM PACKET SL SCH ×2 (09:19→17:49)
[2019-10-16] MEDS: NICOTINE 14 MG/24 HOURS TOPICAL PATCH TD SCH (09:20)
[2019-10-16] MEDS: NICOTINE POLACRILEX 2 MG GUM BUC PRN (09:20)
[2019-10-16] MEDS: MELATONIN 5 MG TABLETS PO PRN (21:05)
[2019-10-16] MEDS: THIAMINE HCL 100 MG TABLET (FP) PO SCH (21:05)
[2019-10-16] MEDS: hydrOXYzine PAMOATE 50 MG CAPSULE (FP) PO PRN (21:05)
[2019-10-17] MEDS ORDERED: PT OWN MED DRAWER 7, Y5N ONE (08:18)
[2019-10-17] MEDS: PRENATAL VITAMINS W/ FOLIC ACID TABLET (FP) PO SCH (09:54)
[2019-10-17] MEDS: BUPRENORPHINE/NALOXONE 8 MG/2 MG FILM PACKET SL SCH ×2 (09:54→17:45)
[2019-10-17] MEDS: ABACAVIR/DOLUTEGRAVIR/LAMIVUDI (TRIUMEQ) TABLET -NF PO SCH (09:54)
[2019-10-17] MEDS: NICOTINE 14 MG/24 HOURS TOPICAL PATCH TD SCH (09:54)
[2019-10-17] MEDS: NICOTINE POLACRILEX 2 MG GUM BUC PRN (09:56)
[2019-10-17] MEDS: THIAMINE HCL 100 MG TABLET (FP) PO SCH (21:28)
[2019-10-17] MEDS: MELATONIN 5 MG TABLETS PO PRN (21:28)
[2019-10-17] MEDS: hydrOXYzine PAMOATE 50 MG CAPSULE (FP) PO PRN (21:28)
[2019-10-18] MEDS: ABACAVIR/DOLUTEGRAVIR/LAMIVUDI (TRIUMEQ) TABLET -NF PO SCH (09:49)
[2019-10-18] MEDS: PRENATAL VITAMINS W/ FOLIC ACID TABLET (FP) PO SCH (09:49)
[2019-10-18] MEDS: BUPRENORPHINE/NALOXONE 8 MG/2 MG FILM PACKET SL SCH ×2 (09:49→18:23)
[2019-10-18] MEDS: NICOTINE 14 MG/24 HOURS TOPICAL PATCH TD SCH (09:51)
[2019-10-18] MEDS: NICOTINE POLACRILEX 2 MG GUM BUC PRN (09:51)
[2019-10-18] MEDS: MELATONIN 5 MG TABLETS PO PRN (21:35)
[2019-10-18] MEDS: THIAMINE HCL 100 MG TABLET (FP) PO SCH (21:35)
[2019-10-18] MEDS: hydrOXYzine PAMOATE 50 MG CAPSULE (FP) PO PRN (21:36)
[2019-10-19] MEDS ORDERED: PT OWN MED DRAWER 7, Y5N ONE ×2 (08:10→21:04)
[2019-10-19] MEDS: NICOTINE 14 MG/24 HOURS TOPICAL PATCH TD SCH (09:38)
[2019-10-19] MEDS: ABACAVIR/DOLUTEGRAVIR/LAMIVUDI (TRIUMEQ) TABLET -NF PO SCH (09:38)
[2019-10-19] MEDS: BUPRENORPHINE/NALOXONE 8 MG/2 MG FILM PACKET SL SCH ×2 (09:38→19:04)
[2019-10-19] MEDS: PRENATAL VITAMINS W/ FOLIC ACID TABLET (FP) PO SCH (09:38)
[2019-10-19] MEDS: NICOTINE POLACRILEX 2 MG GUM BUC PRN (09:39)
[2019-10-19] MEDS: MELATONIN 5 MG TABLETS PO PRN (21:05)
[2019-10-19] MEDS: THIAMINE HCL 100 MG TABLET (FP) PO SCH (21:05)
[2019-10-19] MEDS: hydrOXYzine PAMOATE 50 MG CAPSULE (FP) PO PRN (21:05)
[2019-10-20 06:59] VITALS: BP 111/61; PULSE 79; TEMP 97.7
--- NOTE | 2019-10-20 08:36 | DS ---
[facility] Rehab Discharge Summary - [facility] Rehab Discharge Summary Admission Date: 09/22/19 Discharge Date: 10/20/19 - History Present History: Alcohol dependence, Cannabis dependence, Cocaine dependence, Opioid dependence Pertinent Past History: HIV+ Chronic Back Pain weight Loss Mood Disorder Sleeping disorder - Discharge Physical Exam Vital Signs: Vital Signs Temperature 97.7 F 10/20/19 06:00 Pulse Rate 79 10/20/19 06:00 Respiratory Rate 16 10/20/19 06:00 Blood Pressure 111/61 10/20/19 06:00 O2 Sat by Pulse Oximetry (%) alert o x 3,denies s/h/i nad oob ambulating with steady gait cardiac;s1 s2, rrr lungs:cta,george. abdomen:soft,+bs,nt,nd extremities/skin:no edema,skin dry and intact. Pertinent Admission Physical Exam Findings: Laboratory Tests 09/24/19 12:15 Urine Color Yellow Urine Appearance Cloudy Urine pH 5.5 Ur Specific [place] 1.025 Urine Protein Negative Urine Glucose (UA) Negative Urine Ketones Trace H Urine Blood Negative Urine Nitrite Negative Urine Bilirubin Negative Urine Urobilinogen 0.2 Ur Leukocyte Esterase 1+ H Urine WBC (Auto) 25 Urine RBC (Auto) 3 Urine Casts (Auto) 20 U Epithel Cells (Auto) 11.1 Urine Crystals (Auto) Urine Bacteria (Auto) 394.9 - Treatment Discharge Condition: Discharge condition good Hospital Course: Pt is a 54 y/o female with a hx of TASHI admitted to rehab and scheduled to discharge today. Pt has been referred to [facility] for CD aftercare. Rehabilitated safely and responded well. pt is on Suboxone at [facility] with Dr. Song and will continue after discharge. - Medication Discharge Medications: Ambulatory Orders Abacavir/Dolutegravir/Lamivudi [Triumeq 600-50-300 mg Tablet] 1 each PO DAILY 05/02/16 Buprenorphine/Naloxone [Suboxone 8Mg/2Mg Sl Film -] 1 each SL BID 08/28/17 Buprenorphine/Naloxone [Suboxone 8Mg/2Mg Sl Film -] 1 each SL BID #14 packet MDD 2 10/20/19 - Medication-Assisted Treatment (MAT) Medication-Assisted Treatment (MAT): No - Discharge Instructions Diet, activity, other medical instructions: Diet:Regular Activity: oob ad mary Other medical instructions:follow up with CD aftercare/Suboxone MAT as scheduled. reminded pt to Follow up with her primary care provider, Dr. Deo Ross @ [facility], [place], [place] for medical management of your comorbid conditions within 1 week after discharge. - Diagnosis (1) Alcohol use disorder Current Visit: Yes Status: Chronic (2) Cannabis dependence Current Visit: Yes Status: Chronic (3) Chronic back pain Current Visit: Yes Status: Chronic Qualifiers: Back pain location: low back pain Back pain laterality: bilateral Sciatica presence: without sciatica Qualified Code(s): M54.5 - Low back pain; G89.29 - Other chronic pain; G89.29 - Other chronic pain (4) Cocaine dependence Current Visit: Yes Status: Chronic (5) Encounter for monitoring Suboxone maintenance therapy Current Visit: Yes Status: Chronic (6) Nicotine dependence Current Visit: Yes Status: Chronic Qualifiers: Nicotine product type: cigarettes (7) Weight loss Current Visit: No Status: Chronic (8) HIV (human immunodeficiency virus infection) Current Visit: Yes Status: Chronic Qualifiers: HIV symptom status: unspecified Qualified Code(s): B20 - Human immunodeficiency virus [HIV] disease - Follow-up Referral Minutes to complete discharge: 30 - AMA Did Patient Leave Against Medical Advice: No Additional Comments: Rx for suboxone 8mg/2mg sl BID #14 for 7 days electronically sent to pt's pharmacy to leaf size picker after discharge. Pt will follow up with [facility] to continue Suboxone MAT.
[2019-10-20] MEDS: ABACAVIR/DOLUTEGRAVIR/LAMIVUDI (TRIUMEQ) TABLET -NF PO SCH (09:04)
[2019-10-20] MEDS: NICOTINE 14 MG/24 HOURS TOPICAL PATCH TD SCH (09:04)
[2019-10-20] MEDS: PRENATAL VITAMINS W/ FOLIC ACID TABLET (FP) PO SCH (09:04)
[2019-10-20] MEDS: BUPRENORPHINE/NALOXONE 8 MG/2 MG FILM PACKET SL SCH (09:04)
== END 2019-10-20 09:15 | disposition home or self-care (01) | DRG 772 ==
LOC: YASAS 11:41 → Y3E 11:42
PROVIDERS: ADMIT Allergy & Immunology; ATTEND Allergy & Immunology
PROC: HZ42ZZZ Group Counseling for Substance Abuse Treatment, Cognitive-Behavioral (ICD-10-PCS; principal; 2019-09-22)
DX: F11.20 Opioid dependence, uncomplicated (principal); F10.20 Alcohol dependence, uncomplicated; F14.20 Cocaine dependence, uncomplicated; F12.20 Cannabis dependence, uncomplicated; F39 Unspecified mood [affective] disorder; Z21 Asymptomatic human immunodeficiency virus [HIV] infection status; H57.89 Other specified disorders of eye and adnexa; M54.5 Low back pain; G89.29 Other chronic pain; R63.4 Abnormal weight loss; Z68.1 Body mass index [BMI] 19.9 or less, adult; Z51.81 Encounter for therapeutic drug level monitoring; Z91.013 Allergy to seafood
CPT/HCPCS: 81003